=== PATIENT | female | born 2000 | race Caucasian/White ===

== ENCOUNTER 2022-09-27 23:36 | Inpatient (IN) | payer OTHER, SELFPAY ==
--- NOTE | ~2022-09-27 | FL_ITS ---
EXAMINATION: XR FLUOROSCOPY WITH IMAGES CLINICAL INFORMATION: Cholangiogram. COMPARISON: None available. TECHNIQUE: Fluoroscopy Supervised By: Dr. Aj Luis. Fluoroscopy Time: 33.9 seconds. Cumulative Dose: 7.23 mGy-cm DAP: None. Images: 2. FINDINGS: There are 2 digital images obtained following cholecystectomy with catheter positioned within the cystic duct. There is good opacification of spiral appearing cystic duct, common hepatic duct, intrahepatic ducts and common bile duct with no intraluminal filling defect. There is irregularity seen involving the distal CBD/ostium. FL/FL guidance in OR IMPRESSION: 1. Irregularity involving the distal CBD/junction. 2. No intraluminal filling defect seen in the common bile, cystic or common hepatic ducts.
--- NOTE | ~2022-09-27 | FL_ITS ---
EXAMINATION: XR FLUOROSCOPY WITH IMAGES CLINICAL INFORMATION: ERCP COMPARISON: Previous abdominal ultrasound and T-tube cholangiogram from yesterday TECHNIQUE: Fluoroscopy Supervised By: Dr. Diony Stern. Fluoroscopy Time: 216 seconds. Cumulative Dose: 63 mGy. DAP: Gycm2. Images: 4. FINDINGS: Initial images demonstrate a wire in the extrahepatic bile ducts and mild intra and extrahepatic biliary duct dilatation. Second and third image demonstrates a balloon in the distal common bile duct. Final image demonstrates decompression of the biliary system with decreased dilatation and contrast remaining in the intrahepatic bile ducts. FL/FL guidance in OR IMPRESSION: Fluoroscopy guidance for balloon dilatation of the common bile duct.
--- NOTE | ~2022-09-27 | US_ITS ---
EXAMINATION: US ABDOMEN LIMITED CLINICAL INFORMATION: Right upper quadrant pain, rule out acute cholecystitis. COMPARISON: None available. TECHNIQUE: Real-time imaging of the gallbladder and common bile duct. FINDINGS: The gallbladder is dilated measuring 13 cm in length. Gallstones are identified. Gallbladder wall thickness is within normal limits. Sonographic Whelan sign is reportedly negative. Common bile duct is dilated to 1.1 cm, and some intrahepatic biliary ductal dilatation is also noted. No discrete choledocholithiasis is seen. US/US abdomen limited IMPRESSION: 1. Cholelithiasis without additional findings of cholecystitis. 2. Dilated common bile duct measuring up to 1.1 cm, along with intrahepatic biliary ductal dilatation. Appearance is concerning for sequelae of choledocholithiasis, for which further evaluation with MRCP or ERCP is recommended.
[2022-09-27 23:38] VITALS: BP 124/68; PULSE 77; RESP 19; TEMP 36.4; O2SAT 97; BMI 29.3
[2022-09-27 23:57] LABS: MANUAL DIFF FLAG NO
[2022-09-27 23:58] LABS: Basophils Percent Auto 0.3 % (0-2); Eosinophils Percent Auto 0.1 % (0-4); Hematocrit 41.5 % (37.0-47.0); Hemoglobin 13.9 g/dl (12.0-16.0); Imm Gran Abs Auto 0.03 X10*3/uL (0.00-0.03); Imm Gran Pct Auto 0.3 % (0.0-0.4); Lymphocytes Absolute Auto 3.3 X10*3/uL (1.2-4.9); Lymphocytes Percent Auto 32.5 % (20-40); Mean Corpuscular HGB Conc 33.5 g/dl (31.0-35.0); Mean Corpuscular Hemoglobin 27.7 pg (27.0-33.0); Mean Corpuscular Volume 82.7 fL (80.0-98.0); Mean Platelet Volume 10.1 fL (9.4-12.3); Monocytes Absolute Auto 0.5 X10*3/uL (0.1-1.2); Neutrophils Absolute Auto 6.3 x10*3/uL (2.0-8.3); Neutrophils Percent Auto 61.8 % (45-73); Platelet Count 359 X10*3/uL (160-400); Red Blood Count 5.02 X10*6/uL (4.20-5.50); Red Cell Distribution Width 13.2 % (11.0-16.0); White Blood Count 10.2 X10*3/uL (4.8-10.8)
[2022-09-28] VITALS (16 sets, daily range): BP systolic 96–136; BP diastolic 50–84; PULSE 54–93; RESP 12–71; TEMP 36–36.8; O2SAT 95–100
[2022-09-28 00:32] LABS: Alanine Aminotransferase 56 U/L (0-31); Albumin Level 4.4 g/dL (3.5-5.0); Alkaline Phosphatase 146 U/L (39-117); Anion Gap 14 (12-20); Aspartate Amino Transferase 55 U/L (5-31); Bilirubin Total 1.7 mg/dL (0.0-1.0); Blood Urea Nitrogen 10 mg/dL (9-16); Calcium 9.9 mg/dL (8.4-10.2); Carbon Dioxide 24 mmol/L (22-29); Chloride 105 mmol/L (96-108); Creatinine Clr Calc Pharmacy 98.8; Estimated Glomerular Filt Rate > 60; Glucose Random 122 mg/dL (60-115); Lipase 36 U/L (8-78); Potassium 3.9 mmol/L (3.3-5.1); Sodium 139 mmol/L (135-145)
--- NOTE | 2022-09-28 00:42 | ED_ITS ---
HPI - Abdominal Pain General Chief Complaint: Abdominal Pain Stated Complaint: abd pain, bile in vomit Time Seen by Provider: 09/28/22 00:35 Source: patient Mode of arrival: ambulatory Limitations: no limitations History of Present Illness HPI narrative: Patient comes to the emergency room complaining of intermittent right upper quadrant pain. Patient states that she delivered a baby via in April of 2022. Since then, patient has been experiencing intermittent right upper quadrant pain. Patient states it is worse when she eats something spicy or greasy. However, over the last 48 hours, patient has had worsening pain and constant, now accompanied of nausea and vomiting, no fever chills, no diarrhea. Related Data Allergies Allergy/AdvReac Type Severity Reaction Status Date / Time No Known Allergies Allergy Unverified 11/27/19 16:53 Review of Systems Review of Systems Constitutional : No Weight loss, No Fever, No Chills, No Night Sweats, No Fatigue, No Malaise ENT/Mouth : No Hearing loss, No Ear Pain, No Nasal Congestion, No Sinus Pain, No Hoarseness, No sore throat, No Rhinorrhea, No Swallowing Difficulty Eyes: No Eye Pain, No Swelling, No Redness, No Foreign Body, No Discharge, No Vision Changes Cardiovascular : No Chest Pain, No SOB, No Dyspnea on Exertion, No Orthopnea, No Edema, No Palpitations Respiratory : No Cough, No Sputum, No Wheezing, No Smoke Exposure, No Dyspnea Gastrointestinal : Complaining of nausea and vomiting, No Diarrhea, No Constipation, complaining of intermittent right upper quadrant pain worsened by greasy foods, spicy foods or sometimes even water, No Hematochezia, No Melena Genitourinary : no irregular bleeding, No Dysuria, No Urinary Frequency, No Hematuria, No Urinary Incontinence, No Urgency, No Flank Pain, No Urinary Flow Changes, No Hesitancy Musculoskeletal : No joint pain, No Myalgias, No Joint Swelling Skin : No Skin Lesions, No rash Neuro : No Weakness, No Numbness, No Paresthesias, No Loss of Consciousness, No Dizziness, No Headache Psych : No Anxiety/Panic, No Depression, No SI/HI/AH/VH, No Social Issues, Heme/Lymph: No Bruising, No Bleeding,No Lymphadenopathy Endocrine : No Polyuria, No Polydipsia, No Temperature Intolerance PMFSH Past Medical History Surgical History (Updated 09/28/22 @ 00:45 by Anabel Solano MD) History of Social History Social History Advance Directives: No Advance Directives Information Provided: Yes Patient : No Physical Exam ED Vital Signs: Vital Signs - 24 hr 09/27/22 23:38 09/28/22 01:11 09/28/22 02:19 Temperature 97.6 F 97.9 F 98.0 F Pulse Rate 77 63 60 Respiratory Rate 19 18 18 Blood Pressure 124/68 115/66 104/59 L Pulse Oximetry 97 99 100 Oxygen Delivery Method Room Air Room Air BMI result Body Mass Index 29.3 Const Other: Appearance: Alert. Oriented X3. No acute distress. Eyes: Pupils equal, round and reactive to light. ENT: Pharynx normal. Neck: Normal inspection. Neck supple. No lymph nodes noted. No crepitus CVS: Normal heart rate and rhythm. Pulses normal. Normal S1 and S2 Respiratory: No respiratory distress. Breath sounds normal. No Wheezing. No rales Abdomen: Soft, tenderness to palpation in the right upper quadrant, positive Whelan sign Skin: Skin warm and dry. Normal skin color. Normal skin turgor. Extremities: No lower extremity edema. No Lacerations. No Rash Neuro: Oriented X 3. No motor deficit. No sensory deficit. Moving all extremities. No slurred speech. CN 2 through 12 grossly intact Psych: calm, cooperative, normal affect Medical Decision Making Medical Decision Making MDM Narrative: -white blood cell count is normal. However, patient does have elevated LFTs, T bilirubin 1.7, also mildly elevated AST and ALT, elevated alk-phos. Patient has positive Whelan sign -patient receiving IV fluids, Zofran, morphine -patient has had 2 doses of morphine. Initially she feels comfortable but once the medication starts wearing off, the patient returns, no vomiting after Zofran -identification of ultrasound: Gallstones are present, the wall does not seem to be significantly thickened -I discussed the patient , labs and the ultrasound findings with Dr. Wadsworth from surgery. It is possible that patient may have had a stone or is passing a stone. Patient will probably need an MRCP or ERCP in the morning. Patient will be admitted. -patient agreeable with plan. Differential Diagnosis Differential Diagnoses: The differential diagnosis associated with the presentation includes (Pancreatitis, cholecystitis, viral syndrome, choledocholithiasis) Admission/Observation Consideration of admission/observation: Escalation of care including admission/observation considered Consult Healthcare Provider Management of the patient was discussed with: Plating Tank Operator Apprentice Lab Data MDM Lab Attestation statement: I reviewed the patient's lab results. 09/27/22 23:54 09/27/22 23:54 Labs: Lab Results 09/27/22 09/27/22 09/28/22 Range/Units 23:54 23:54 00:55 WBC 10.2 (4.8-10.8) X10*3/uL RBC 5.02 (4.20-5.50) X10*6/uL Hgb 13.9 (12.0-16.0) g/dl Hct 41.5 (37.0-47.0) % MCV 82.7 (80.0-98.0) fL MCH 27.7 (27.0-33.0) pg MCHC 33.5 (31.0-35.0) g/dl RDW 13.2 (11.0-16.0) % Plt Count 359 (160-400) X10*3/uL MPV 10.1 (9.4-12.3) fL Immature Gran % (Auto) 0.3 (0.0-0.4) % Neut % (Auto) 61.8 (45-73) % Lymph % (Auto) 32.5 (20-40) % [place] % (Auto) 5.0 (2-11) % Eos % (Auto) 0.1 (0-4) % Baso % (Auto) 0.3 (0-2) % Lymph # (Auto) 3.3 (1.2-4.9) X10*3/uL [place] # (Auto) 0.5 (0.1-1.2) X10*3/uL Eos # (Auto) 0.0 (0.0-0.4) X10*3/uL Baso # (Auto) 0.0 (0.0-0.2) X10*3/uL Abs Immat Gran (auto) 0.03 (0.00-0.03) X10*3/uL Absolute Neuts (auto) 6.3 (2.0-8.3) x10*3/uL Absolute Nucleated RBC 0.000 (0.0-0.012) X10*3/uL Nucleated RBC % (auto) 0.0 (0.0-0.2) /100WBC Sodium 139 (135-145) mmol/L Potassium 3.9 (3.3-5.1) mmol/L Chloride 105 (96-108) mmol/L Carbon Dioxide 24 (22-29) mmol/L Anion Gap 14 (12-20) BUN 10 (9-16) mg/dL Creatinine 0.73 (0.5-1.4) mg/dL Estim Creat Clear Calc 98.8 Estimated GFR > 60 Random Glucose 122 H (60-115) mg/dL Calcium 9.9 (8.4-10.2) mg/dL Total Bilirubin 1.7 H (0.0-1.0) mg/dL AST 55 H (5-31) U/L ALT 56 H (0-31) U/L Alkaline Phosphatase 146 H (39-117) U/L Total Protein 8.0 (6.5-8.0) g/dL Albumin 4.4 (3.5-5.0) g/dL Lipase 36 (8-78) U/L Urine Color Yellow Urine Appearance Hazy Urine pH 6.0 (5.0-9.0) Ur Specific [place] >= 1.030 H (1.005-1.025) Urine Protein 30 (1+) H (Neg-Trace) mg/dL Urine Glucose (UA) Negative (Negative) mg/dL Urine Ketones 15 (Negative) mg/dL Urine Blood Trace (Negative) Urine Nitrite Negative (Negative) Ur Leukocyte Esterase Small (1+) H (Negative) Urine RBC 3-5 H (0-2) /HPF Urine WBC 0-5 (0-5) /HPF Ur Squamous Epith Cells 6-10 (0-2) /HPF Urine Bacteria 1+ (None Seen) Hyaline Casts 0-2 (0-2) /LPF Urine Test (NEGATIVE) 09/28/22 Range/Units 00:55 WBC (4.8-10.8) X10*3/uL RBC (4.20-5.50) X10*6/uL Hgb (12.0-16.0) g/dl Hct (37.0-47.0) % MCV (80.0-98.0) fL MCH (27.0-33.0) pg MCHC (31.0-35.0) g/dl RDW (11.0-16.0) % Plt Count (160-400) X10*3/uL MPV (9.4-12.3) fL Immature Gran % (Auto) (0.0-0.4) % Neut % (Auto) (45-73) % Lymph % (Auto) (20-40) % [place] % (Auto) (2-11) % Eos % (Auto) (0-4) % Baso % (Auto) (0-2) % Lymph # (Auto) (1.2-4.9) X10*3/uL [place] # (Auto) (0.1-1.2) X10*3/uL Eos # (Auto) (0.0-0.4) X10*3/uL Baso # (Auto) (0.0-0.2) X10*3/uL Abs Immat Gran (auto) (0.00-0.03) X10*3/uL Absolute Neuts (auto) (2.0-8.3) x10*3/uL Absolute Nucleated RBC (0.0-0.012) X10*3/uL Nucleated RBC % (auto) (0.0-0.2) /100WBC Sodium (135-145) mmol/L Potassium (3.3-5.1) mmol/L Chloride (96-108) mmol/L Carbon Dioxide (22-29) mmol/L Anion Gap (12-20) BUN (9-16) mg/dL Creatinine (0.5-1.4) mg/dL Estim Creat Clear Calc Estimated GFR Random Glucose (60-115) mg/dL Calcium (8.4-10.2) mg/dL Total Bilirubin (0.0-1.0) mg/dL AST (5-31) U/L ALT (0-31) U/L Alkaline Phosphatase (39-117) U/L Total Protein (6.5-8.0) g/dL Albumin (3.5-5.0) g/dL Lipase (8-78) U/L Urine Color Urine Appearance Urine pH (5.0-9.0) Ur Specific [place] (1.005-1.025) Urine Protein (Neg-Trace) mg/dL Urine Glucose (UA) (Negative) mg/dL Urine Ketones (Negative) mg/dL Urine Blood (Negative) Urine Nitrite (Negative) Ur Leukocyte Esterase (Negative) Urine RBC (0-2) /HPF Urine WBC (0-5) /HPF Ur Squamous Epith Cells (0-2) /HPF Urine Bacteria (None Seen) Hyaline Casts (0-2) /LPF Urine Test NEGATIVE (NEGATIVE) Independent Interpretation I performed an independent interpretation of an: Ultrasound Radiology Impression Discussion of test interpretation with radiology: I have reviewed the radiologist's reading. Radiologist Impression: US ABDOMEN LIMITED CLINICAL INFORMATION: Right upper quadrant pain, rule out acute cholecystitis. COMPARISON: None available. TECHNIQUE: Real-time imaging of the gallbladder and common bile duct. FINDINGS: The gallbladder is dilated measuring 13 cm in length. Gallstones are identified. Gallbladder wall thickness is within normal limits. Sonographic Whelan sign is reportedly negative. Common bile duct is dilated to 1.1 cm, and some intrahepatic biliary ductal dilatation is also noted. No discrete choledocholithiasis is seen. US/US abdomen limited IMPRESSION: 1.? Cholelithiasis without additional findings of cholecystitis. 2.? Dilated common bile duct measuring up to 1.1 cm, along with intrahepatic biliary ductal dilatation. Appearance is concerning for sequelae of choledocholithiasis, for which further evaluation with MRCP or ERCP is recommended. ? Medications Administered Discontinued Medications Generic Name Dose Route Start Last Admin Trade Name Freq PRN Reason Stop Dose Admin Sodium Chloride 1,000 mls @ 999 mls/hr 09/28/22 00:36 09/28/22 02:04 Ns IVCONT 09/28/22 01:36 Infused .Q1H1M ONE Infusion Ketorolac Tromethamine 30 mg 09/28/22 00:41 09/28/22 00:52 Ketorolac Tromethamine 30 Mg/Ml Vial IVPUSH 09/28/22 00:42 30 mg ONCE ONE Administration Morphine Sulfate 4 mg 09/28/22 02:36 09/28/22 02:48 Morphine Sulfate 4 Mg/Ml Cartridge IVPUSH 09/28/22 02:37 4 mg ONCE ONE Administration Protocol Ondansetron HCl 4 mg 09/28/22 00:36 09/28/22 00:51 Ondansetron Hcl 4 Mg/2 Ml Vial IVPUSH 09/28/22 00:37 4 mg ONCE ONE Administration Critical Care Time Critical Care Time Critical Care Time: Yes Total Critical Care Time: 60 Attestation: I have personally provided critical care time. Time includes review of lab data, radiology results, discussion with consultants, and monitoring for potential decompensation. Intervention performed as documented. Discharge Plan Discharge Clinical Impression: Choledocholithiasis Patient Disposition: Admitted As Inpatient
--- NOTE | 2022-09-28 00:48 | MHC.EDTECH ---
Patient was brought in from triage,patient changed into hospital attire, vitals updated, Patient in bathroom giving a urine sample at this time.
[2022-09-28] MEDS: 0.9 % Sodium Chloride 1,000 ML 999 ML IVCONT (00:51)
[2022-09-28] MEDS: ondansetron HCL 4 MG/2 ML VIAL IVPUSH ×2 (00:51→17:32)
[2022-09-28] MEDS: Ketorolac Tromethamine 30 MG/ML VIAL IVPUSH (00:52)
[2022-09-28 01:07] LABS: Appearance Urine Hazy; Color Urine Yellow; Glucose Urine UA Negative (Negative); Leukocyte Esterase Urine Small (1+) (Negative); Nitrite Urine Negative (Negative); Specific Gravity - Urine >= 1.030 (1.005-1.025); UMIC TRIGGER UACC YES; Urine Blood Trace (Negative); Urine Ketones 15 mg/dL (Negative); Urine Protein 30 (1+) mg/dL (Neg-Trace)
[2022-09-28 01:10] LABS: UPreg QC Valid YES; Urine Pregnancy NEGATIVE (NEGATIVE)
[2022-09-28 01:21] LABS: Bacteria Urine 1+ (None Seen); Hyaline Casts Urine 0-2 /LPF (0-2); UACC Culture Trigger YES; WBC Urine 0-5 /HPF (0-5)
--- NOTE | 2022-09-28 02:28 | MHC.EDTECH ---
Hourly rounds completed,vitals taken and patient is in pain, RN Dania was made aware. Call lopez within reach
[2022-09-28] MEDS: Morphine Sulfate 4 MG/ML CARTRIDGE IVPUSH ×3 (02:48→22:21)
[2022-09-28 03:18] LABS: Bilirubin Direct 0.9 mg/dL (0.0-0.5)
--- NOTE | 2022-09-28 03:36 | MHC.EDTECH ---
Hourly rounds completed, vitals taken and belongings list completed. Call lopez within reach
--- OUTSIDE RECORDS SUMMARY | 2022-09-28 03:52 | XMS_ITS | Continuity of Care Document ---
Author Name Unknown Organization [facility] Address [address] [address]- Care Team Providers Care Hand Finisher Name Role Phone Henri HENDRICKSON, Choco Jones Primary Care Physician [phone] Encounter [facility] Date(s): 01/06/22 - 02/05/[address] [facility] [address] [address]- Allergies, Adverse Reactions, Alerts No Known Allergies Immunizations Given and Recorded Vaccine Date Status Refusal Reason tetanus/diphtheria/pertussis, acel(Tdap) 01/18/22 Given influenza virus vaccine, inactivated 01/18/22 Give n Medications Aspirin Low Dose 81 mg oral delayed release tablet 2 tablet, By Mouth, Daily, # 60 tablet, 1 Refills, Maintenance, 01/18/22 9:28:00 EST, [id number], 150, cm, 12/29/21 8:57:00 EDT, Height, 72.1, kg, 12/08/21 8:37:00 EDT, Dry Weight Start Date: 01/18/22 Status: Ordered Multivitamins with Vitamin B Complex, Vitamin C, Minerals and L- Methylfolate oral capsule 1 capsule, By Mouth, Daily, # 30 capsule, 5 Refills, Maintenance, 11/17/21 15:08:00 EDT, Capsule, [id number], Partial fill upon patient request if the prescription is for a schedule II opioiddrug., 1 capsule By Mouth Daily,x30 days, 150, cm,... Start Date: 11/17/21 Stop Date: 05/16/22 Status: Ordered pyridoxine 25 mg oral tablet 1 tablet = 25 mg, By Mouth, Every 6 hours, PRN Nausea & Vomiting, take as needed, # 50 tablet, 2 Refills, Maintenance, 11/17/21 15:08:00 EDT, Tablet, [id number], Partial fill upon patientrequest if the prescription is for a schedule II opioid... Start Date: 11/17/21 Status: Ordered Unisom 25 mg oral tablet 1/2 tablet, By Mouth, 3 times a day, PRN Nausea & Vomiting, for 30 days, Take 1/2 a tab three times a day with one tab of pyridoxine for pevention of N/V in , # 45 tablet, 1 Refills, Acute 02/06/22 8:34:00 EST, 12/08/21 8:34:00 EDT, [facility] Start Date: 12/08/21 Stop Date: 02/06/22 Status: Ordered Problem List Condition Confirmation Course Effective Dates Status Health St at[facility] Informant Obese class I Confirmed Active Rh negative Confirmed Active Social History Social History Type Response Smoking Status Never (less than 100 in lifetime) entered on: 11/17/21 Sex Patient Care team information Care Team Personnel Name: Henri HENDRICKSON, Choco Jones Position: [facility] Primary Care Physician Member Role: PCP Address: Address: [address] [place] [address] [place] [address]- Care Team Related Persons Name: NELL ZABALA
--- OUTSIDE RECORDS SUMMARY | 2022-09-28 03:52 | XMS_ITS | Continuity of Care Document ---
Author Name Unknown Organization [facility] Address [address] [place] [address]- Care Team Providers Care Television Maintenance Worker Name Role Phone Choco Álvarez MD Primary Care Physician [phone] [place] [facility] [place] 09/23/22 [facility] [address] [place] [id number]- Attending Physician: AdmJorge balderas Admitting Physician: AdmtrJorge Referring Physician: Admtr, [id number] Allergies, Adverse Reactions, Alerts No Known Allergies Immunizations Given and Recorded Vaccine Date Status Refusal Reason tetanus/diphtheria/pertussis, acel(Tdap) 01/18/22 Given influenza virus vaccine, inactivated 01/18/22 Give n Medications acetaminophen 325 mg oral tablet 975 mg, 3, tablet, By Mouth, Every 6 hours, PRN, greater than 100.4 F (38 degree C), # 60 tablet, Refills 0, Tot. Refills 0, Maintenance, Temperature, 04/20/22 6:57:00 EST, Route to Pharmacy Electronically, [facility] #[id number], Partial fill upon patien... Start Date: 04/20/22 Status: Ordered docusate sodium 100 mg oral tablet = 100 mg, By Mouth, 2 times a day, # 30 tablet, 0 Refills, Maintenance, 04/20/22 6:57:00 EST, Tablet, [facility] #[id number], Partial fill upon patient request if the prescription is for a schedule II opioid drug., 150, cm, 04/20/22 0:53:00 EST, Height, 7... Start Date: 04/20/22 Status: Ordered ibuprofen 600 mg oral tablet See Instructions, 1 tablet By Mouth 3 times a day as needed for pain, # 90 tablet, Refills 0, Tot. Refills 0, Maintenance, 05/30/22 10:00:00 EDT, Instructions Replace Required Details, Route to Pharmacy Electronically, [facility]/pharmacy #[id number], Partial fill... Start Date: 05/30/22 Status: Ordered ibuprofen 800 mg oral tablet 800 mg, 1, tablet, By Mouth, Every 8 hours, (4-6), may give 400mg per patient preference and re-dose with 400mg within 8 hours, if needed. Patient should only receive a total of 800mg of Ibuprofen every 8 hours., # 30 tablet, Refills 0, Tot. Refills... Start Date: 04/20/22 Status: Ordered Lutera 100 mcg-20 mcg oral tablet 1 tablet, By Mouth, Daily, # 28 tablet, 12 Refills, Maintenance, 05/30/22 10:00:00 EDT, Tablet, [facility]/pharmacy #[id number], Partial fill upon patient request if the prescription is for a schedule II opioid drug., 1 tablet By Mouth Daily, 150, cm, 05/30/22 9:4... Start Date: 05/30/22 Status: Ordered Multivitamins with Vitamin B Complex, Vitamin C, Minerals and L- Methylfolate oral capsule 1 capsule, By Mouth, Daily, # 30 capsule, 5 Refills, Maintenance, 11/17/21 15:08:00 EDT, Capsule, [facility]/pharmacy #[id number], Partial fill upon patient request if the prescription is for a schedule II opioiddrug., 1 capsule By Mouth Daily,x30 days, 150, cm,... Start Date: 11/17/21 Stop Date: 05/16/22 Status: Ordered Problem List Condition Confirmation Course Effective Dates Status Health St at[facility] Informant Rh negative Confirmed Active Social History Social History Type Response Smoking Status Never (less than 100 in lifetime) entered on: 11/17/21 Sex Patient Care team information Care Team Personnel Name: Choco Álvarez MD Position: S Physician - Primary Care Member Role: PCP Address: Address: [address] [place] [address]- Care Team Related Persons Name: MARCIA HASSAN Address: [employer] Address: [address] [place] [address] [place] Name: NELL ZABALA Address: home [address] [place] [address]
--- OUTSIDE RECORDS SUMMARY | 2022-09-28 03:52 | XMS_ITS | Continuity of Care Document ---
Author Name Unknown Organization [facility] ter Address [address] [place] [id number]- Care Team Providers Care Purler Name Role Phone Henri HENDRICKSON, Choco Jones Primary Care Physician Encounter [facility] Date(s): 04/06/22 - 05/17/[address] [address] Attending Physician: Gavin Gu MD Referring Physician: Deepthi Floyd CNM Allergies, Adverse Reactions, Alerts No Known Allergies [...] 04/20/22 6:57:00 EST, Route to Pharmacy Electronically, [facility]/pharmacy #[id number], Partial fill upon patien... Start Date: 04/20/22 Status: Ordered docusate sodium 100 mg oral tablet = 100 mg, By Mouth, 2 times a day, # 30 tablet, 0 Refills, Maintenance, 04/20/22 6:57:00 EST, Tablet, [facility]/pharmacy #[id number], Partial fill upon patient request if the prescription is for a schedule II opioid drug., 150, cm, 04/20/22 0:53:00 EST, Height, 7... Start Date: 04/20/22 Status: Ordered famotidine 10 mg oral tablet 1 tablet = 10 mg, By Mouth, 2 times a day, # 60 tablet, 1 Refills, Maintenance, 03/15/22 19:03:00 EST, Tablet, [facility]/pharmacy #[id number], Partial fill upon patient request if the prescription is for a schedule II opioid drug., 150, cm, 03/15/22 18:54:00 EST,... Start Date: 03/15/22 Status: Ordered ferrous gluconate 324 mg oral tablet 1 tablet = 324 mg, By Mouth, 3 times a day, # 100 tablet, 1 Refills, Maintenance, 02/16/22 4:14:00 EST, Tablet, [facility]/pharmacy #[id number], Partial fill upon patient request if the prescription is for a schedule II opioid drug., 150, cm, 01/18/22 14:39:00 EST... Start Date: 02/16/22 Status: Ordered ibuprofen 800 mg oral tablet 800 mg, 1, tablet, By Mouth, Every 8 hours, (4-6), may give 400mg per patient preference and re-dose with 400mg within 8 hours, if needed. Patient should only receive a total of 800mg of Ibuprofen every 8 hours., # 30 tablet, Refills 0, Tot. Refills... Start Date: 04/20/22 Status: Ordered oxyCODONE 5 mg oral tablet 5 mg, 1, tablet, By Mouth, Every 3 hours, PRN, (7-10), # 10 tablet, Refills 0, Tot. Refills 0, Maintenance, Pain , Severe, 04/20/22 6:57:00 EST, Route to Pharmacy Electronically, [facility]/pharmacy #[id number], Partial fill upon patient request if the prescriptio... Start Date: 04/20/22 Status: Ordered Multivitamins with Vitamin B Complex, Vitamin C, Minerals and L- Methylfolate oral capsule 1 capsule, By Mouth, Daily, # 30 capsule, 5 Refills, Maintenance, 11/17/21 15:08:00 EDT, Capsule, [facility]/pharmacy #[id number], Partial fill upon patient request if the prescription is for a schedule II opioiddrug., 1 capsule By Mouth Daily,x30 days, 150, cm,... Start Date: 11/17/21 Stop Date: 05/16/22 Status: Ordered pyridoxine 25 mg oral tablet 1 tablet, By Mouth, Every 6 hours, PRN NEEDED FOR NAUSEA AND VOMITING, # 50 tablet, 3 Refills, Maintenance, 04/25/22 8:30:00 EST, [id number], 150, cm, 04/20/22 9:49:00 EST, Height, 73.3, kg, 04/15/22 12:06:00 EST, Dry Weight Start Date: 04/25/22 Status: Ordered simethicone 80 mg oral tablet, chewable 80 mg, Chew, 3 times a day, PRN, # 20 tablet, Refills 0, Tot. Refills 0, Maintenance, Gas, 236:57:00 EST, Route to Pharmacy Electronically, [facility]/pharmacy #[id number], Partial fill upon patient request if the prescription is for a schedule II opioid . Start Date: 04/20/22 Status: Ordered Problem List Condition Confirmation Course Effective Dates Status Health St atus Informant Obese class I Confirmed Active Rh negative Confirmed Active Social History Social History Type Response Smoking Status Never (less than 100 in lifetime) entered on: 11/17/21 Sex Patient Care team information Care Team Personnel Name: Choco Álvarez MD Position: S Primary Care Physician Member Role: PCP Address: Address: [address] [place] [address] [place] [address]- Care Team Related Persons Name: MARCIA HASSAN Address: [employer] Address: home [address] [place] [address] [place] Name: NELL ZABALA Address: home [address] [place] [address]
--- OUTSIDE RECORDS SUMMARY | 2022-09-28 03:52 | XMS_ITS | Continuity of Care Document ---
Author Name Unknown Organization [facility] ter Address [address] [place] [id number] Care Team Providers Care Certified Medical Coder Name Role Phone Henri HENDRICKSON, Choco Jones Primary Care Physician [phone] Encounter [facility] Date(s): 04/15/22 - 04/20/[address] [id number] Discharge Disposition: A-D/C Home Attending Physician: Rene HENDRICKSON [OB], Kim Cleary Admitting Physician: Rene HENDRICKSON [OB], Kim Cleary Referring Physician: Rene HENDRICKSON [OB], Kim Cleary Allergies, Adverse Reactions, Alerts No Known Allergies [...] 04/20/22 6:57:00 EST, Route to Pharmacy Electronically, [facility]/pharmacy #[id number], Partial fill upon patien... Start Date: 04/20/22 Status: Ordered docusate sodium 100 mg oral tablet = 100 mg, By Mouth, 2 times a day, # 30 tablet, 0 Refills, Maintenance, 04/20/22 6:57:00 EST, Tablet, [facility]/pharmacy #[id number], Partial fill upon patient request if the prescription is for a schedule II opioid drug., 150, cm, 04/20/22 0:53:00 EST, Height, 7... Start Date: 04/20/22 Status: Ordered famotidine 10 mg oral tablet 1 tablet = 10 mg, By Mouth, 2 times a day, # 60 tablet, 1 Refills, Maintenance, 03/15/22 19:03:00 EST, Tablet, [facility]/pharmacy #[id number], Partial fill upon patient request if the prescription is for a schedule II opioid drug., 150, cm, 03/15/22 18:54:00 EST,... Start Date: 03/15/22 Status: Ordered ferrous gluconate 324 mg oral tablet 1 tablet = 324 mg, By Mouth, 3 times a day, # 100 tablet, 1 Refills, Maintenance, 02/16/22 4:14:00 EST, Tablet, [facility]/pharmacy #[id number], Partial fill upon patient [...] 04/20/22 6:57:00 EST, Route to Pharmacy Electronically, [facility]/pharmacy #[id number], Partial fill upon patient request if the prescriptio... Start Date: 04/20/22 Status: Ordered OxyCODONE IR Tablet 5 mg, Tablet, By Mouth, Every 3 hours, PRN for Pain , Severe, (7-10), Routine, 04/17/22 12:12:00 EST Start Date: 04/17/22 Stop Date: 04/20/22 Status: Discontinued Multivitamins with Vitamin B Complex, Vitamin C, Minerals and L- Methylfolate oral capsule 1 capsule, By Mouth, Daily, # 30 capsule, 5 Refills, Maintenance, 11/17/21 15:08:00 EDT, Capsule, [facility]/pharmacy #[id number], Partial fill upon patient request if the prescription is for a schedule II opioiddrug., 1 capsule By Mouth Daily,x30 days, 150, cm,... Start Date: 11/17/21 Stop Date: 05/16/22 Status: Ordered simethicone 80 mg oral tablet, chewable 80 mg, Chew, 3 times a day, PRN, # 20 tablet, Refills 0, Tot. Refills 0, Maintenance, Gas, 236:57:00 EST, Route to Pharmacy Electronically, [facility]/pharmacy #[id number], Partial fill upon patient request if the prescription is for a schedule II opioid Start Date: 04/20/22 Status: Ordered Problem List Condition Confirmation Course Effective Dates Status Health St atus Informant Obese class I Confirmed Active Rh negative Confirmed Active Procedures Procedure Date Related Diagnosis Body Site Status delivery only; 04/16/22 C ompleted [place] tooth Completed Vital Signs Most recent to oldest [Reference Range]: 1 2 3 Height 150 cm (04/20/22 8:40 AM) 150 cm (04/20/22 12:53 AM) 150 cm (04/19/22 4:00 PM) Weight 73.3 kg (04/15/22 12:06 PM) 73.3 kg (04/15/22 11:18 AM) Oxygen Saturation [94-100 %] 97 % (04/20/22 8:40 AM) 100 % (04/20/22 12:53 AM) 99 % (04/19/22 4:00 PM) Pulse Rate [55-90 bpm] 69 bpm (04/20/22 8:40 AM) 109 bpm *H* (04/20/22 12:53 AM) 78 bpm (04/19/22 4:00 PM) Body Mass Index [18.5-24.99 kg/m2] 32.58 kg/m2 *>HHI* (04/15/22 12:06 PM) Blood Pressure [90-138/55-84 mm Hg] 111/64mm Hg (04/20/22 8:40 AM) 117/77mm Hg (04/20/22 12:53 AM) 112/70mm Hg (04/19/22 4:00 PM) Respiratory Rate [16-30 br/min] 18 br/min (04/20/22 9:18 AM) 17 br/min (04/20/22 8:40 AM) 20 br/min (04/20/22 4:55 AM) Temperature [96.8-100.4 DegF] 98.0 DegF (04/20/22 8:40 AM) 98.3 DegF (04/20/22 12:53 AM) 98.6 DegF (04/19/22 4:00 PM) Liters per Minute 1 L/min (04/16/22 5:02 PM) 2 L/min (04/16/22 2:51 PM) 2 L/min (04/16/22 2:01 PM) Mode of Delivery (Oxygen) Room air (04/20/22 12:53 AM) Room air (04/19/22 4:00 PM) Room air (04/19/22 8:00 AM) Blood pressure sites Arm, left (04/20/22 8:40 AM) Arm, right (04/20/22 12:53 AM) Arm, right (04/19/22 4:00 PM) Temperature Route Oral (04/20/22 8:40 AM) Oral (04/20/22 12:53 AM) Oral (04/19/22 4:00 PM) Dry Weight 73.3 kg (04/15/22 12:06 PM) 73.3 kg (04/15/22 11:18 AM) Social History Social History Type Response Smoking Status Never (less than 100 in lifetime) entered on: 11/17/21 Sex History and physical note * Jillian Forrester MD: PERFORM Event Display: History and Physical Hospital Authored Date: Patient: ??SAGRARIO, STEPHANIE ? Age:??21 Years?Sex:??Female?:??2000?? OB Reason for Admission OB Reason for Admission Reason for admission: Labor LMP/EGA/MARY JO Gestational Age (EGA) and MARY JO? * Note: EGA calculated as of 04/15/2022 ?? MARY JO:??04/10/2022?EGA*:??40 weeks 5 days ? History?(0,0,0,0)?Method:??Ultrasound??(12/12/2021) History of Present Illness Patient is a??21 year old @??40w5d gestation??presenting for early labor with SROM. She has been endorsing regular contractions since 04:00am. She also reports a gush of clear fluid at 09:45am. She has experienced vaginal spotting since her membrane sweep on Sunday, but denies any heavy bleeding.?? Endorses good movement. Denies fever/chills, ELENA, dizziness, changes in vision, CP, SOB, RUQ pain, UE/LE swelling. Overall, doing well with no complaints. Review of Systems Constitutional:??No fever, chills, or fatigue. HEENT:??No changes in vision, sneezing, congestion, runny nose or sore throat. Skin:??No rash or itching. Cardiovascular:??No chest pain. Respiratory:??No shortness of breath. Gastrointestinal:??No anorexia, nausea/vomiting, constipation/diarrhea. Genitourinary:??No burning micturition, urinary frequency or incontinence. Gynecologic: No heavy vaginal bleeding, vaginal discharge, or vaginal itching. Neurologic:??No headaches. Musculoskeletal:??No muscle pains. Psychiatric:??No depression or anxiety. Physical Exam Vitals & Measurements T:??98?F ?? OR:??93?? RR:??18?? BP:??99/68?? SpO2:??99%?? WT:??73.3??kg?? Constitutional:??Well-developed, no acute distress. Respiratory:??Equal chest rise bilaterally, no labored breathing.? Abdomen/GI:??Soft, non-tender, non-distended, no guarding or rebound tenderness.??Gravid. Gynecologic:?External Genitalia: normal exam, without lesions ??Vagina: no lesions, well-rugated ??Cervix: normal exam, no lesions Extremities:??Warm and well-perfused.?? Skin:??Normal for ethnicity. Neurological/Psychiatric:??Appearance appropriate, mood and affect stable. Presentation confirmed by:??vertex by sutures ?? Membrane Status (SSE): Ruptured Ferning:??Positive Nitrazine:??Positive Pooling:??Positive OB Assessment Baby A Baseline Description:Normal, 110-160 bpm Baseline Variability:Moderate variability Accelerations:Present 2 or more Deceleration:None Activity:Present Membranes ROM Date, Time:04/15/2022 09:45 EST Amniotic Fluid Color/Description:Blood tinged Cervical Estimated Weight:3500 gm Membrane Status:SROM Uterine Number of Contractions per 10 minutes3 Monitor Mode, UterinePalpation, External Cervical Cervical Dilatation4 cm Cervical [id number]% Station-2 Assessment/Plan Assessment:?? Patient is a 21 year old @ 40w5d gestation admitted for early labor with SROM. GBS neg. SROM with clear fluid at 09:45am. Early labor. Plan for expectant management. Epidural ordered. Cat 1 tracing. ?? Anemia in (O99.019):? (x) CBC 02/22/22 - 10.9/33.3 04/15: compliant on iron TID (p) CBC on admission ?? Labor without complication (O80):? -Expectant management -Continuous monitoring -Low PPH risk -Pain control: awaiting epidural -Re-evaluation in 2 hrs or PRN ?? Rh negative (Z67.91):? (x) antibody screen 28wks 01/18 neg (x) rhogam 28wks and prn, pt to return to [facility] after lab ( ) rhogam PP if indicated ?? OB History History?(0,0,0,0)?No previous pregnancies history have been recorded Labs Labs Labs & Tests ABO: AB (12/20/21) Antibody Screen: Negative (01/18/22) Chlamydia Trachomatis Amplified Probe: NEGATIVE (12/20/21) Creatinine-Blood: 0.5 mg/dL (02/22/22) Glucose 50 Gm, +60 Minutes: 104 mg/dL (12/29/21) Hct:??33.3 %??Low (02/22/22) Hemoglobinopathy Interpretation: Normal hemoglobins, with anemia. (12/20/21) Hepatitis B Surface Antigen: NEGATIVE (12/20/21) Hepatitis C Ab: NEGATIVE (12/20/21) Hgb:??10.9 Gm/dL??Low (02/22/22) HIV 4th Generation Ab-Ag Result: NEGATIVE (12/20/21) RH Test Only: Negative (12/20/21) RPR Titer Result: NOT INDICATED (12/20/21) Rubella IgG Ab: POSITIVE (12/20/21) Syphilis Screen by [facility]: NEGATIVE (12/20/21) Uric Acid: 3.2 mg/dL (02/22/22) Urine Culture: Urine Culture (12/20/21) Varicella IgG Ab: POSITIVE (12/20/21) Problem List Active Active Problem List Obese class I: (Medical) : (Obstetric) (07/02/21) Rh negative: (Medical) Procedure/Surgical History [place] tooth Home Medications Aspirin: 2 tablet, By Mouth, Daily Famotidine: 10 mg = 1 tablet, By Mouth, 2 times a day Ferrous Gluconate: 324 mg = 1 tablet, By Mouth, 3 times a day Miscellaneous Rx ([facility] DOXYLAMINE 25 MG TAB): See Instructions, TAKE 1/2 A TAB 3 TIMES A DAY WITH ONE TAB OF PYRIDOXINE FOR PEVENTION OF N/V IN Multivitamin, : 1 capsule, By Mouth, Daily Pyridoxine: 1 tablet, By Mouth, Every 6 hours, PRN ( NEEDED FOR NAUSEA AND VOMITING) Allergies NKA Social History Alcohol Use: Past. Frequency: 1-2 times per year., 11/17/2021 Electronic Cigarette/Vaping Electronic Cigarette Use: Never., 11/17/2021 Employment/School Status: Employed. 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 Lives with: Mother. Feels unsafe at home: No., 12/07/2021 Nutrition/Health Diet: Regular., 11/17/2021 Sexual Sexually involved in last 6 months: Yes., 11/17/2021 Substance Abuse Use: Never., 11/17/2021 Tobacco Use: Never (less than 100 in lifetime)., 11/17/2021 Family History Mat. Grandmother: Cancer; Diabetes mellitus Plan OB Plan Infant Feeding Plan: Breast milk (04/15/22) Labor Coping Mechanisms: Epidural (04/15/22) * Sneha Mensah CNM: PERFORM Event Display: History and Physical Hospital Authored Date: Admit to L&D?? Standard admit labs-see orders?? Covid swab ordered?? EFM: intermittent ?? This note was completed with the aid of a PGY1 Salman??. I personally performed all components of the visit including the history of present illness, examination and medical decision making. The notehas been verified for accuracy and re-documented as needed.?? Hospital Progress note * Danna Rangel: PERFORM, SIGN, VERIFY Event Display: Progress Note Hospital Authored Date: Patient: STEPHANIE ZABALA Age: 21 years Sex: Female : 2000 Associated Diagnoses: None Author: Danna Rangel Discharge instructions reviewed with pt, all questions answered. Pt has 6wk pp visit scheduled. Bands verified and cut, pt left unit ambulatory with significant other and * Danna Rangel: PERFORM, SIGN, VERIFY Event Display: Progress Note Hospital Authored Date: Patient: STEPHANIE ZABALA Age: 21 years Sex: Female : 2000 Associated Diagnoses: None Author: Danna Rangel Pt A&O x 3, VSS rooming in with infant and bonding well. Assessment as documented. Pt reports voiding without difficulty and passing flatus, has not yet had bowel movement. Pt pumping and [id number] per session. Reviewed plan of care with pt, will continue to monitor Findings Problem Related to Alteration in Comfort : Alteration in Comfort/new 04/19/2022 23:00 EST Alteration in Comfort Related to Surgery, Other: c/s Goals & Outcomes: Comfort Pt will report acceptable level of comfort & pain control, Pt will state importance of adhering to pain strategy regime, Pt will demonstrate necessary skills to manage pain, Non-verbal indicators will indicate comfort/pain control Interventions Implemented: Comfort Assess pain using appropriate pain scale/tools, Assess aggravating factors & prevent them accordingly, Assess alleviating factors & promote them accordingly Goals/Interventions, Comfort Yes Comfort, Problem Start 04/16/2022 21:37 Reviewed plan with, Comfort Patient Patient Progression, Comfort Pt progressing according to plan Comfort, Problem Ongoing Yes . * Kellee Dutton RN: PERFORM, SIGN, VERIFY Event Display: Progress Note Hospital Authored Date: [id number] Patient: STEPHANIE ZABALA Age: 21 years Sex: Female : 2000 Associated Diagnoses: None Author: Kellee Dutton RN Findings pt ob stable, abd soft, abd incision with steri strips clean and dry, fundus firm and -1, mild vag bleeding noted. pt reports +voiding without difficulty. pt reports adequate pain relief taking tylenol, ibuprofen, and oxycodone. will cont to assess Problem Related to Alteration in Comfort : Alteration in Comfort/new 04/19/2022 23:00 EST Alteration in Comfort Related to Surgery, Other: c/s Goals & Outcomes: Comfort Pt will report acceptable level of comfort & pain control, Pt will state importance of adhering to pain strategy regime, Pt will demonstrate necessary skills to manage pain, Non-verbal indicators will indicate comfort/pain control Interventions Implemented: Comfort Assess pain using appropriate pain scale/tools, Assess aggravating factors & prevent them accordingly, Assess alleviating factors & promote them accordingly Goals/Interventions, Comfort Yes Comfort, Problem Start 04/16/2022 21:37 Reviewed plan with, Comfort Patient Patient Progression, Comfort Pt progressing according to plan Comfort, Problem Ongoing Yes . Note * Berna Manzo: PERFORM Event Display: Care Team Progress Note Authored Date: Patient: ??STEPHANIE ZABALA ? Age:??21 Years?Sex:??Female?:??2000?? Subjective Day of discharge; pumped once last night 20ml, mostly formula. Assessment/Plan Discuss safe sleep, feeding volume, signs of satiety,??encouraged paced bottle feeding to slow feeding??down,??and that babies fuss for a variety of reasons, not just hunger. Reviewed how the body makes milk, encouraged more frequent removal of milk to maintain production. Gave info for obtaining breast milk storage bags from medical supplier through insurance. OB Summary : 1 . Baby A - Weight: 3.298 kg Baby A - Date, Time of : 04/16/22 11:43:00 Baby A - Gender: Female Baby A - Complications: Meconium stained fluid EGA at Documented Date, Time: 40W 6D Weight at Delivery Baby A - Delivery Type: , low transverse Delivery Complications: Suspected Intraamniotic infection OB History History?(0,0,0,0)?No previous pregnancies history have been recorded Active Problem List Active Problem List Intra-amniotic infection of fetus: (Nursing) Problem added by Discern Expert (04/16/22) Obese class I: (Medical) : (Obstetric) (07/02/21) Rh negative: (Medical) Home Medications Acetaminophen: 975 mg = 3 tablet, By Mouth, Every 6 hours, PRN (Temperature), greater than 100.4 F (38 degree C) Docusate: 100 mg, By Mouth, 2 times a day Famotidine: 10 mg = 1 tablet, By Mouth, 2 times a day Ferrous Gluconate: 324 mg = 1 tablet, By Mouth, 3 times a day Ibuprofen: 800 mg = 1 tablet, By Mouth, Every 8 hours, (4-6), may give 400mg per patient preferenceand re-dose with 400mg within 8 hours, if needed. ?? Patient should only receive a total of 800mg of Ibuprofen every 8 hours. Multivitamin, : 1 capsule, By Mouth, Daily Oxycodone: 5 mg = 1 tablet, By Mouth, Every 3 hours, PRN (Pain , Severe), (7-10) Simethicone: 80 mg, Chew, 3 times a day, PRN (Gas) Medications Medications (19) Active SCHEDULED: (5) Acetaminophen 325 mg Tablet (Acetaminophen Tablet) ??650 mg, By Mouth, Every 4 hours Docusate Sodium 100 mg Capsule (Docusate Sodium Capsule) ??100 mg 1 capsule, By Mouth, 2 times a day Famotidine 20 mg Tablet (Famotidine Tablet) ??20 mg, By Mouth, 2 times a day Ibuprofen 800 mg Tablet (Ibuprofen Tablet) ??800 mg, By Mouth, Every 8 hours Multivitamin Tablet ??1 tablet, By Mouth, Daily CONTINUOUS: (1) Lactated Ringers (1000 mL) Cont IV 1,000 mL (Lactated Ringers 1,000 mL) ??1,000 mL, IV Infusion, 125 mL/hr PRN: (13) Acetaminophen 325 mg Tablet (acetaminophen 325 mg oral tablet) ??975 mg, By Mouth, Every 6 hours Acetaminophen 325 mg Tablet (Acetaminophen Tablet) ??650 mg, By Mouth, Once diphenhydrAMINE 25 mg Tablet (DiphenhydrAMINE Tablet) ??25 mg, By Mouth, Every 4 hours diphenhydrAMINE 50 mg/mL Inj (DiphenhydrAMINE Inj) ??25 mg 0.5 mL, IV Push, Once FENTanyl 50 mcg/mL Inj (2 mL) (FENTanyl Inj) ??25 mcg 0.5 mL, IV Push, Every 5 minutes Metoclopramide 5 mg/mL Inj (2 mL) (Metoclopramide Inj) ??10 mg, IV Push, Every 6 hours nalOXONE ??400mcg/mL Inj (nalOXONE Inj) ??0.1 mg 0.25 mL, IV Push Slowly, Every 15 minutes Ondansetron 2mg/mL Inj (2mL Vial) (Ondansetron Inj) ??4 mg, IV Push, Once Ondansetron 2mg/mL Inj (2mL Vial) (Ondansetron Inj) ??4 mg, IV Push Slowly, Once Ondansetron 4 mg ODT (Ondansetron Tablet) ??4 mg, By Mouth, Every 4 hours OxyCODONE 5 mg IR Tablet (OxyCODONE IR Tablet) ??5 mg, By Mouth, Every 3 hours PROCHLORperazine 5mg/ml Inj (PROCHLORperazine Inj) ??5 mg 1 mL, IV Push, Every 6 hours Simethicone 80 mg Chewable Tablet (Simethicone Tablet) ??80 mg, Chew, 3 times a day * Danna Rangel: PERFORM Event Display: Discharge/Transfer Note Hospital Authored Date: [id number] Nursing Discharge Note Entered On: 04/20/2022 11:22 EST Performed On: 04/20/2022 11:18 EST by Danna Rangel Nursing Discharge Note 2 Discharge Level of Care at Discharge : Home/Fpc/Foster Care Patient Left Unit Via : Ambulatory Patient Accompanied Off Unit with : Significant other DC Instructions Provided & Signed by Pt : Yes Patient Understands D/C Instructions : Yes Patient Instructions Discharge Signed : Yes Did Pt have Specialty Bed or Wound Vac : No Danna Rangel - 04/20/2022 11:22 EST * Nigel HENDRICKSON, Jerri Coffman: PERFORM Event Display: Discharge/Transfer Note Hospital Authored Date: [id number] Patient: ??STEPHANIE ZABALA ? Age:??21 Years?Sex:??Female?:??2000?? Admit Date Admission Date: 04/15/2022 Discharge Date 04/20/2022 OB Reason for Admission OB Reason for Admission Reason for admission: Labor OBN Hospital Course 21 year old @??40w5d gestation??presenting for early labor with SROM. Her labor course was augmented with Pitocin. Her intrapartum course was complicated by IAI for which she received the appropriate antibiotics. After pushing??with contractions for >4 hours with little progress, she underwent a primary section. Her course was uncomplicated and she was discharged home on POD4 after meeting all milestones.? On day of discharge,??patient is feeling well and her??pain is controlled. Her lochia is light.??She is ambulating,??tolerating regular diet,??voiding spontaneously, and passing flatus.??Denies headache, visual changes, chest pain, shortness of breath, abdominal pain, leg swelling, nausea, or vomiting. Objective/Physical Exam on Day of Discharge Vitals & Measurements T:??98.3?F ?? HR:??78(Monitored)?? OR:??109?? RR:??20?? BP:??117/77?? SpO2:??100%?? HT:??150??cm?? WT:??3.298??kg?? BMI:??32.58?? General: Pleasant, alert, cooperative, in no acute distress. Pulmonary: Unlabored breathing. Abdomen: Soft, non-distended, non-tender to palpation.??Fundus firm and below umbilicus. Incision c/d/i with steris in place. Package Checker: Minimal spotting on peripad. Extremities: No lower extremity edema, no erythema/warmth/tenderness of calves bilaterally. Psychiatric: Mood and affect appropriate. Assessment/Plan/Discharge Diagnosis Assessment:??21 yo??G1 now P1 POD4 s/p PCS in the setting of failure to descend under general anesthesia due to inadequate pain control with her epidural. Intrapartum course was complicated by intraamniotic infection now s/p antibiotics. VS wnl and patient remains afebrile, hemodynamically stable. M eeting appropriate post-op milestones and appropriate for discharge. Patient educated on discharge precautions. Patient was counseled on warning signs for calling or returning to care including but not limited to signs of infection, increased bleeding, increased pain, and depression. ?? Discussed with the patient her pain med requirements for home. I encouraged her to continue Tylenoland ibuprofen scheduled and only take opiates for breakthrough pain. Explained that she may fill less than the prescribed amount, and she should store them in a safe location in a childproof prescription bottle. Any unused opiates should be returned to a prescription drop-box, such as the one at the [facility]. Discussed that no one other than the patient should take her opiates, and she should not use them for anything other than her postoperative pain. She should not drive while taking opiates. She was instructed to call the office with pain that is not controlled with this regimen. ?? care following delivery (Z39.2):? - Continue scheduled Tylenol and ibuprofen - Rx sent to patient pharmacy for pain medications - Continue bowel regimen - Rx sent to patient pharmacy for bowel regimen - PPBC: Declined. Discussed with patient that in the absence of the control and even with there is a risk of . Discussed that we ideally recommend at least 18-months between pregnancies. Discussed the different options including IUD, Nexplanon, Depo, POP. - Follow-up in 4-6 weeks for routine care ?? Endometritis (N71.9):? - s/p Amp, Gent, Clinda ?? Rh negative (Z67.91):? - Patient is not a candidate for rhogam ?? Future Appointments Sunday 9:40 AM EDT ?? With: Everett DOLAN, Deepthi Rios Where: [facility] [address] [place] [address]- Delivery Summary Delivery Summary Maternal Information ??Labor Information ?Labor Onset, Date/Time: ??04/15/22 14:28:00 ?Baby A ?Labor Onset Methods: ??Induced ??Delivery Information ?Gestational Age at Delivery: ??40W 6D ?Anesthesia OB: ??Epidural ??04/15/22 13:03:13 ?Delivery Complications: ??Suspected Intraamniotic infection ?Blood Loss - Quantitative: ??560 mL ? Baby A ??Delivery Information ?Delivery Type: ??, low transverse ? Priority: ??Non scheduled ?Date, Time of : ??04/16/22 11:43:00 ? Position: ??Supine ?Delayed Cord Clamping: ??No ?Reason for No Delayed Cord Clamping: ?? to warmer ?Placenta Delivery Date/Time: ??04/16/22 11:45:00 ?Placenta Delivery Method: ??Assisted ?Placenta Appearance: ??Normal ?Placenta to Pathology: ??Yes ??Care Team ?Time NICU Team Called: ??04/16/22 11:30:00 ??Labor Information ?ROM Date, Time: ??04/15/22 09:45:00 ?ROM to Delivery Total Time: ??1558 min ? monitoring: ??External monitor ?? Information ? Outcome: ??Live ? Weight: ??3.298 kg ? Score 1 minute: ??2 ? Score 5 minute: ??4 ? Score 10 minute: ??7 ?Transferred To: ?? Care area with Family ?Umbilical Cord Description: ??3 vessel cord ?Cord Blood pH drawn: ??Arterial, Venous ? Complications: ??None ?Gender: ??Female ? Procedures Performed Section Primary ? Discharge Medications ???Acetaminophen (acetaminophen 325 mg oral tablet)???Docusate (docusate sodium 100 mg oral tablet)???Famotidine (famotidine 10 mg oral tablet)???Ferrous Gluconate (ferrous gluconate 324 mg oral tablet)???Ibuprofen (ibuprofen 800 mg oral tablet)???Multivitamin, ( Multivitamins withVitamin B Complex, Vitamin C, Minerals and L-Methylfolate oral capsule)???Oxycodone (oxyCODONE 5 mgoral tablet)???Simethicone (simethicone 80 mg oral tablet, chewable) Stop taking these medications ???Aspirin (Aspirin Low Dose 81 mg oral delayed release tablet) Immunizations during Hospitalization Vaccine Date Statustetanus/diphtheria/pertussis, acel(Tdap) 01/18/2022 Given influenza virus vaccine, inactivated 01/18/2022 Given Contraception None ? Infant Feeding Method [place] Feeding Method: (04/16/22 15:00:00) Patient Instructions Call your doctor if: you note fever of 100.4 or greater, heavy vaginal bleeding, foul-smelling vaginal discharge, difficulty or burning with urination, nausea and vomiting with inability to tolerate food, pain not controlled by your prescribed medications, redness/swelling/drainage at incision, shortness of breath or chest pain. ??- Do not drive while taking narcotics. Do not drive until cleared by your doctor. ??- Avoid lifting anything 10bs or greater for 2 weeks/cleared by doctor. ??- Do not put anything in the vagina. No intercourse, tampons, or douching until cleared by doctor. ??- Stairs are OK but avoid multiple trips and go slowly. ??- Walk as often as you are able. ??- Continue your stool softeners (examples: colace/docusate, senna, miralax) until no longer taking narcotics and stools are regular. ??- Shower as usual after 24 hours. Remove Steri-Strips when they start to peel off, or after 5 days. Do not scrub the incision. Pat the skin dry. * Danna Rangel: PERFORM Event Display: Patient Education/Instruction Authored Date: [id number] Inpatient Adult Discharge Instructions [address] [address] Name: STEPHANIE ZABALA : 2000 Visit: 04/15/2022 11:55:00 Current Date: 04/20/2022 10:18 Account: [id number] Inpatient Adult Discharge Instructions We would like to thank you for allowing us to assist you with your healthcare needs. The following includes patient education materials and information regarding your injury/illness. Our entire staffstrives to provide an excellent experience for our patients and their families. PLEASE ENSURE YOU FOLLOW-UP PER THE INSTRUCTIONS BELOW! ?? YOUR OPINION IS IMPORTANT TO US! Please complete the survey you may receive by mail or email. Your feedback will be used to make improvements to the healthcare experiences of our patients and their families. Surveys are administered by [employer] ?? If further treatment with your primary care physician or another doctor is recommended, it is important for you to keep the appointment. Call your primary care physician or return to the Emergency Department immediately if your condition worsens, fails to improve, or new symptoms develop. If you need to find a doctor, you can call [facility] [employer] for a referral at [phone] or toll free at [phone] or log in to [email or web address].. ?? You can view and manage your care through the patient portal or by using a health care dewayne of your choosing. [employer] is a website that allows you to securely view your medical information including your hospital discharge summary, office visit summaries, medications and follow-up visits. You can also request appointments, renew medications, and request access to your medical information using a health care dewayne of your choosing, or just ask a question. You can enroll at [email or web address] or register during your next office visit. You have been discharged from [facility], Patient Care Unit: WIN2. If you have any questions regarding these instructions after you leave, please call us and we will be happy to assist you. [facility] Your Care Team Attending Physician Brittanie HENDRICKSON, Gavin; Rene HENDRICKSON [OB], Kim Cleary Consulting Providers Nigel HENDRICKSON, Jerri Coffman Discharging Providers Jerri Manning MD Reason for Admission Labor Your Diagnosis Labor without complication Anemia in Rh negative Endometritis care following delivery Obese class I Tests Performed Below is a partial list of the tests performed during your hospitalization. You may have had other tests and procedures not included in this list. Please discuss all test results with your provider. CBC Cord Blood Gas Type and Screen Primary Care Provider Choco Álvarez MD Advance Directive Health Care Proxy on File No Patient refuses to discuss Discharge Vitals Temperature: 98 DegF Height: 150 cm Pulse Rate: 69 bpm Weight: 73.3 kg Respiratory Rate: 18 br/min Body Mass Index:??32.58 kg/m2??Critical Systolic Blood Pressure: 111 mm Hg Body surface area: 1.75 Diastolic Blood Pressure: 64 mm Hg ?? Oxygen Saturation: 97 % ?? Studies Pending All tests and labs ordered during this hospital stay have been completed unless listed below. Please discuss all pending results with your provider listed above in these instructions. ?? COVID-19 (2019 Novel Coronavirus) PCR Hold Lavender Tube (BB) Pathology Tissue Request () Hold Lavender Tube (BB) (Hold Lavender Tube (BB), ) What to do next Instructions From Your Doctor Discharge Orders Scheduled Follow-Up Appointments Sunday 9:40 AM EDT ?? With: Deepthi Floyd CNM Where: [facility] [address] [place] [address]- You Need to Schedule the Following Appointments Follow Up with??Follow up in 4-6 weeks as scheduled When?? Discharge Medications STEPHANIE ZABALA :2000 Visit Date:04/15/2022 Medications: Please continue your medications until treatment is completed or stopped by your provider. Medications not listed below should be discontinued. Discuss any questions related to medications with your provider. What How Much When Why Instructions Next Dose New Acetaminophen (acetaminophen 325 mg oral tablet) 3 tab(s) Oral Every 6 hours as needed for Temperature greater than 100.4 F (38 degree C) ?? Pickup at [facility]/pharmacy #2070 1:!5pm New Docusate (docusate sodium 100 mg oral tablet) 100 Milligram Oral Twice a day Pickup at [facility]/pharmacy #2070 tomorrow New Ibuprofen (ibuprofen 800 mg oral tablet) 1 tab(s) Oral Every 8 hours (4-6), may give 400mg per patient preference and re-dose with 400mg within 8 hours, if needed. ?? Patient should only receive a total of 800mg of Ibuprofen every 8 hours. ?? Pickup at [facility]/pharmacy #2070 1:00pm New Oxycodone (oxyCODONE 5 mg oral tablet) 1 tab(s) Oral Every 3 hours as needed for Pain , Severe (7-10) ?? Pickup at [facility]/pharmacy #2070 1:15pm New Simethicone (simethicone 80 mg oral tablet, chewable) 80 Milligram Chew 3 times a day as needed for [facility] needed Unchanged Famotidine (famotidine 10 mg oral tablet) 1 tab(s) Oral Twice a day Abdominal pain Unchanged Ferrous Gluconate (ferrous gluconate 324 mg oral tablet) 1 tab(s) Oral 3 times a day Unchanged Multivitamin, ( Multivitamins with Vitamin B Complex, Vitamin C, Minerals and L-Methylfolate oral capsule) 1 capsule Oral Daily Duration: 30 Days tomorrow Pharmacy Information [facility]/pharmacy #[id number]: [address], [place] [id number] [phone] ?? What How Much When Comments Stop Taking Aspirin (Aspirin Low Dose 81 mg oral delayed release tablet) 2 tab(s) Oral Daily Test Results Below is a partial list of the most recent Laboratory test results done prior to this discharge. You may have had other tests and procedures not included in this list. Please discuss all test resultswith your provider. RHIG Candidacy Screen - Patient is not a candidate for RhIG (04/16/2022) CBC (04/15/2022) ???WBC - 14.9 k/mm3???RBC - 4.43 m/mm3???Hgb - 12.6 Gm/dL???Hct - 36.5 %???MCV - 82.4 femtoliters???MCH - 28.4 pg???MCHC - 34.5 g/dL???Platelet Count - 264 k/mm3???RDW-SD - 42.8 femtoliters???MPV - 10.5 femtoliters???Nucleated RBC (Automated) - 0.0 #/100 WBC'S???Abs. NRBC - 0.0 k/mm3 Cord Blood Gas (04/16/2022) ? ?pH - 7.27? ?pCO2 - 30 mm Hg? ?pO2 - <20 mm Hg? ?Bicarbonate, Estimated - 13 mmol/L? ?SpecimenType - Blood Gas - CORD BLOOD Type and Screen (04/15/2022) ???Blood Type - AB Negative???Antibody Screen - Negative Allergies (NKA means No Known Allergies) NKA Problems Active Problems??(4) Intra-amniotic infection of fetus?? Obese class I? Rh negative?? Education Materials Below is the list of Educational Leaflet Providered with your Discharge Instructions. OB PP [facility]- Discharge Instructions?? OB PP Warning Signs?? Valuables and Belongings I fully understand and agree that [facility] accepts no responsibility for all my personal property including clothing, toilet articles, radios, jewelry, dentures, hearing aids, rings, money, or any other property that is in my possession or is brought to me after admission. I understand certain valuables may be placed in a hospital safe for a short period of time. I understand that the hospital is not liable for loss or damage due to accident, fire, or other natural occurrence while said property is in the safe. I accept full responsibility for any personal property that I keep with me, and will not hold the hospital responsible in case of loss or disappearance. I acknowledge that i have been encouraged to send valuables and belongings home. ?? Review of Valuable and Belonging List: With patient Date for Pt to Sign Valuables/Belongings: 04/15/22 12:24:00 ?? Other Discharge Information ? Pulmonary Rehab Status?? Pulmonary Rehab Discharge Status?? Respiratory Rate: 18 br/min ? Common Emergency Awareness Tips IS IT A STROKE? Act FAST and Check for these signs: FACE Does the face look uneven? ARM Does one arm drift down? SPEECH Does their speech sound strange? TIME Call at any sign of stroke ?? Heart Attack Signs Chest discomfort: Most heart attacks involve discomfort in the center of the chest and lasts more than a few minutes, or goes away and comes back. It can feel like uncomfortable pressure, squeezing, fullness or pain. Discomfort in upper body: Symptoms can include pain or discomfort in one or both arms, back, neck, jaw or stomach. Shortness of breath: With or without discomfort. Other signs: Breaking out in a cold sweat, nausea, or lightheaded. Remember, MINUTES DO MATTER. If you experience any of these heart attack warning signs, call to get immediate medical attention! ?? Smoking can increase your chances of developing chronic health problems and can cause harmful effects to other family members in your house. If you smoke, you are strongly encouraged to quit. Please call [facility] [employer] at [phone] or [phone]) or log in to www.[email or web address] for referrals to smoking cessation programs. ?? The National Suicide Prevention Hotline is available 02/10 if you or someone you know needs to find a reason to keep living. By calling 6-130-484-Dragonfly List (1282) you'll be connected to a skilled, trained counselor at a crisis center in your area. INPATIENT DISCHARGE INSTRUCTIONS SIGNATURE PAGE STEPHANIE ZABALA Location:[facility] Registration Date and Time:04/15/2022 11:55 EST Primary Care Physician: Henri HENDRICKSON, Choco Jones, Keila STEPHANIE ZABALA, have received the above patient education materials/instructions and have verbalized understanding. If ambulance or transport services are being used I further acknowledge being given a choice of service. ?? If you need to contact me, please call me at this number: . Patient/Spindle Carver Name: Patient/Spindle Carver Signature: Relationship to Patient: Witness Name/Signature: Date: * Danna Rangel: PERFORM, SIGN, VERIFY Event Display: Patient Education Handout Authored Date: [id number] * Danna Rangel: PERFORM Event Display: Patient Education Leaflets Authored Date: [id number] OB PP [facility]- Discharge Instructions ?? 209 Discharge Care Instructions for the New Mom and Baby Please take a few moments to read through these helpful instructions before you leave the hospital.?? Your nurse will be glad to answer any questions you may have.?? You can also find this and more information throughout the purple Becoming a Family booklet, [facility]s New Beginnings Guide and the Consultation Services Guide given to you after the of your baby.?? You may also phone our nurses stations if you have further questions.?? [facility]:?? First Floor ([phone]), Second Floor ([phone]).?? Please call your provider if you have any questions or concerns?? before your next appointment. For ongoing support please ???Like?? us on our Facebook page ???[facility]???s New Beginnings?? andsign up for our email newsletter at [email or web address].?? News and information will besent to you until your baby???s third birthday. Instructions for the New Mother Activity: For the next 2 weeks at home ??? no heavy lifting, avoid unnecessary stair climbing, and no driving(especially if you are taking medicine that may make you sleepy or feel that you are sleep deprived).?? For the next 4-6 weeks - no tampons, no douches, no sexual intercourse. Use your sundar bottle to rinse your perineum until your vaginal flow stops.?? If you have stitches in your bottom, they generally dissolve within 7-10 days.?? Apply Tucks/witch linn pads until your soreness subsides.?? Use your bathroom at home every 3 to 4 hours, rinse, and change your pads. Warm showers feel great on achy muscles, sore backs and sore bottoms. Exercise: Walking is the best form of exercise.?? Wait until your follow up appointment with your provider in4-6 weeks before engaging in more strenuous activity. Diet: Drink plenty of fluids to avoid constipation and to help support your recovery. Eat plenty of iron rich foods such as red meat, iron fortified cereals like Total and Cream of Wheat, raisins, prunes, greens and spinach.?? These will help to build your blood count back up as all women lose some blood after delivery.?? Also add foods rich in Vitamin C such as strawberries, oranges, papayas, kale and lopez peppers. Continue to take your vitamins if you are .?? If you are not follow the instructions of your provider.?? If you were prescribed iron supplements such as ferrous sulfate, it is important to continue these until your doctor or printing services coordinator tells you to stop. Breast Care for Nursing Mothers: Wear a comfortable fitting, supportive nursing bra.?? An underwire bra is not recommended. Express drops of breast milk and rub over your nipples and areola (brown area) before and after each feeding to protect and heal sensitive skin and then air dry your nipples.?? If you are experiencing any soreness, you may purchase nipple cream such as TenderCare or Lansinoh.?? Use it in the following manner:?? finish your feeding or pumping session, self-express colostrum onto your nipple and air dry, apply the nipple cream to the nipple and areola.?? Use only small amounts for best results. If you are having difficulty getting the baby to latch onto the breast due to swelling of the areola, try applying pressure with your fingers for a couple of minutes above and below your nipple and walk your fingers outward softening the area and pushing the swelling away.?? This technique is knownas reverse pressure softening.?? For demonstrations of this and other techniques such as the [place] Hand Expression technique, please refer to the resources section of the Consultation Services Guide that you received from services. When your milk first comes in, usually within 3 to 5 days after delivery, you may experience engorgement.?? Your breasts may become swollen and very tender.?? Cold compresses work great to help with discomfort and reduce swelling. It will get better in a couple of days.?? Continue to nurse your baby frequently.?? Call [facility]???s Consultation Service at [phone], press 1 to schedule an outpatient appointment or press 3 and a splunk consultant will return your call that day or the next if you call after 3pm. Breast Care for Bottle Feeding Mothers: Engorgement may occur within the first week after delivery.?? Your breasts may become hard and verytender.?? A cool compress of cleaned raw green cabbage leaves applied to the breast and changed as leaves wilt has been proven helpful for many women.?? Ice packs or frozen bags of peas also work nicely to ease the discomfort.?? The soreness will only last a couple of days. Keep your back turned to the water while showering to decrease breast stimulation. Wear a snug fitting bra such as a sports bra. Incision Care Following Tubal or Section: You may shower as directed by your doctor or printing services coordinator.?? Pat your incision dry with a clean towel.??You will not need a bandage after the first day. Call your doctor or printing services coordinator with any signs of infection such as a hard, hot swollen tender incision, especially if the skin around the incision looks pink or red.?? Yellow drainage with an odor may also be a sign of infection to report. Call your doctor or printing services coordinator if the incision begins to separate. If you have steri-strips on the incision, they will likely fall off in the first week.?? If they have not fallen off by 10 days after delivery, you may remove them. Control: Your doctor or printing services coordinator will discuss control methods with you [facility] at your [facility].?? Be sure to let your provider know if you are . ?? Pain Management:?? Cramping after is common and increases in strength with each baby you have.?? If you experience painful cramps, and have no allergies to acetaminophen (Tylenol) or ibuprofen (Motrin), you may continue to take these medications as you did in the hospital.?? Ibuprofen is also helpful with back aches following epidurals, perineal pain following a vaginal delivery, and moderate incisional pain after a section or a tubal ligation.?? If you experience gas distention, especially after surgery, you may take an over the counter medication called simethicone.?? Take these chewable tablets 4 times a day as needed and directed on the package.?? Keep moving.?? Walking or rocking in a chair, will help to move the gas along.?? Manjula tea made with heated manjula navya (instead of water) and a tea bag, stirred to dissolve carbonation (bubbles) is a helpful drink to soothe a gassy stomach. Warning Signs of a Problem to Notify Your Doctor or Enrollment Nurse of: Heavy vaginal bleeding ??? which is soaking a pad every hour with bright red blood. Passing blood clots the size of an egg or larger. An incision that is not healing. A temperature greater than or equal to 100.4 especially if accompanied by any of the following symptoms ??? painful, frequent urination; extreme back or flank pain; lower belly pain with a foul smellto your vaginal flow; a red hard hot area on your breast.?? Severe headache that does not go away after taking acetaminophen or ibuprofen.?? A headache that changes your vision, including seeing spots or blurring. Right sided upper abdominal pain along the rib cage area. Pain in your legs that is warm and tender to the touch. depression signs may include ??? loss of interest in your baby, weepiness, difficulty focusing, weight loss with no appetite, exhaustion, feeling overwhelmed or anxious, feelings of despair, or thoughts of harming yourself or your baby.?? These symptoms are important and should be discussed with your doctor or printing services coordinator. depression may develop over a period of time and needs prompt medical attention.?? Do not suffer in silence.?? In both the Becoming a Family booklet and the[facility] Guide there is a screening tool used to identify women at risk, called the [place] Scale which you have taken in the office prior to delivery and again during your hospital s mali.?? Three to four weeks after your delivery, and before your check with your provider, take this test and share your results with your provider.?? Be sure to mention any score of 10 or more.?? Many women, and even some partners, may experience the ???baby blues?? .?? This is a state of feeling overwhelmed and weepy.?? Discomfort from childbirth, hormonal changes, exhaustion, changes to your body and lifestyle are a few of the things that contribute to the highs and lows new parents go through.?? Don???t be afraid to ask your partner or family and friends for some help at home so you can get some rest and a few minutes to yourself.?? The blues will quickly pass. Personal Safety: Every person has the right to feel safe at home and live free from physical or emotional harm.?? Ifyou have suffered mental or physical abuse at home, you are not alone.?? There is help.?? Please call [employer] or the [employer] Program at [phone]. CARE Bathing: Give your baby a sponge bath until the cord falls off in about 1-3 weeks.?? It is not necessary to bathe your baby every day, usually every few days is sufficient. ??Keep the cord area dry.?? Some baby girls will have a small bloody vaginal discharge. No need to worry as this is normal. It is not necessary to use lotions on the baby???s skin.?? Powders and oils are not recommended.?? Babies often get rash on their skin which comes and goes quickly and does not require any special care.?? Diaper rash can be treated with a zinc oxide preparation such as Desitin or Balmex diaper cream. ?? Diapers:? After the 1st??few days, the baby will start wetting more often.?? A breast fed baby will wet about6-8 times a day once mom???s milk comes in ??? usually day 4 or 5.?? This is a good sign that the baby is getting plenty to eat.?? You may notice an orangey-pink stain in the diaper which is normal for the first few days. The baby???s first bowel movements are sticky, black and tarry.?? As the baby starts to feed more often over the next couple of days, the stool will change to a seedy yellowish green color and eventually a loose mustard like stool for a breast fed baby and a more formed yellow stool for a bottle fed baby. your Baby: ??Congratulations on deciding to breastfeed your baby! You are providing your baby with the most nourishing food source on the planet, your breast milk.?? Cues such as rooting, suckling, licking and fussing may be telling you that your baby is ready to eat ??? and it is time to offer your breasts. The first weeks following the are a time for you and your baby to learn.?? The baby may be sleepy the first day after with 8 to 12 attempts ??? including 2 to 4 good feedings.?? Over the next couple of days the baby will become more wakeful, feed 8 to 12 times a day and have more wet and poopy diapers.?? Cluster feeding, especially during the evening/night time, is normal. ?? Listen for swallowing sounds and watch the baby as they become more relaxed at the breast ??? both good signs that the baby is getting a good amount of milk.?? Refrain from smoking or eating edible marijuana while you are . Even though marijuana is legal in the state of [place],??it is harmful for your baby.??It stays in breast milk for along period of time and THC can be found in the baby's urine for up to 3 weeks. Second hand smoke can also increase the risk??of Sudden Syndrome / SIDS. ?? Nursing is wonderful but many moms and babies have some degree of difficulty with at first. Don???t give up!?? There are many resources available to help you overcome these temporary problems. Your electrical control assembler wants to hear from you if you are having difficulties and can offermany helpful suggestions.?? Some offices have consultants on staff. [facility]???s Consultation Service is available 7 days a week, 8am to 3pm at [phone].?? Press 1 to schedule an outpatient appointment.?? Press 3 to leave a message for the reporting consultant, a splunk consultant will return your call that day or the next if you call after 3pm. Support Groups ??? [facility] offers free gatherings for moms and babies weekly.?? All groups meet at the [facility]???s 2nd??floor, typically in the [facility] Conference Room, Sunday???s 1 to 2 pm.?? Michelle Aguirre is a worldwide organization with local community support, mother to mother support.?? Information can be found at https://www.lllusa.org Formula Feeding your Baby: Formula fed babies should eat every 3 to 4 hours.?? Look for cues that your baby is ready ??? such as rooting and sucking, licking and fussing.?? At the baby???s stomach is small and may take 10-15ml of formula.?? Over the next few days the baby will become more wakeful and feed more frequently, gradually increasing the amounts of formula taken at a feeding.?? Your electrical control assembler will provideinstructions on how to increase the amount.?? Refer to packaging for formula preparation directions, depending on the type of formula you purchase ??? powder, concentrate or ready to feed. Safety: ALWAYS REMEMBER - BACK TO SLEEP! Babies sleep safest on their backs.?? Every sleep.?? Every time.?? Every nap. Babies need a firm sleep surface with a tight fitting bottom sheet.?? NO loose bedding.?? NO pillows.?? NO bumper pads or rolls.?? NO heavy or fluffy blankets. NO stuffed toys. It is not safe for your baby to sleep in your bed, in a chair, or on a sofa.?? Your baby should notsleep with you or anyone else. Car Seat: Always place your baby in a rear facing car seat in the backseat of the car. Car seat inserts that come with the car seat can be used as they are crash tested with the seat.?? You should not buy additional inserts.?? Dress the baby in a weather appropriate outfit.?? Avoid bulky clothing such as snowsuits or jackets as the baby may squirm in the seat, loosening the shoulder straps and come out of the top of the harness if you need to brake hard or are in an accident.?? Once the baby issecured in the seat you can cover your little one with a blanket if needed.?? If your baby was bornprematurely, follow the directions given to you.?? If you have not already done so, check to make sure your car seat is installed correctly. Check with your local Fire and Police Department to see if they offer car seat inspections at a location close to you. Babies Can Move: ?? Never leave your baby unattended on any surface, raised or flat, or while bathing.?? They can squirm, fall or hurt themselves.?? Always fasten the safety belt when using an infantseat or swing ??? as they may lean forward and fall. Good Handwashing is the number one way you can protect the baby from too?? many germs and prevent infection.?? When family and friends visit ask that they wash their hands before holding your baby.??Also avoid crowds the first month of your baby???s life to protect from colds and flus. Shaking a baby out of frustration can cause severe and lasting damage, even to a baby.?? If you feel you are becoming angry or overwhelmed, place the baby in a safe place and walk away.?? Call a friend or family member.?? If they are not able to offer immediate help call the Parental Stress Hotline at?? , an anonymous 02/10 source of help. Warning Signs to notify your electrical control assembler of: Most babies develop a small amount of jaundice (a yellowish skin color) in the face and upper chest, by about 3 days of age.?? If the yellow color extends below the baby???s belly or if the baby is very sleepy and not feeding well, call your electrical control assembler. A rectal temperature of 100.4F as it could be a sign of infection. Projectile vomiting that continues with each feeding could indicate reflux or a problem with the formula. Extreme sleepiness or very fussy. Cold symptoms with nasal stuffiness, especially if the baby is having difficulty feeding. Constipation with hard stools. Blue or dusky color, call 911. ? This information has been modified by your health care provider with permission from the publisher. ?? * Danna Rangel: PERFORM Event Display: Patient Education Leaflets Authored Date: [id number] OB PP Warning Signs ?? 222 Warning Signs Mom - Warning Signs of Problems to Notify Your Doctor or Enrollment Nurse of: ??? Heavy vaginal bleeding (soaking a pad every hour with bright red blood). ??? Large clots the size of an orange or so. ??? A temperature greater than or equal to 100.6F especially if accompanied by painful, frequent urination, lower abdominal pain with a foul smell to vaginal flow, a red hard hot area on breast that could indicate a breast infection. ??? Severe headaches, visual changes such as seeing spots or blurred vision. ??? Extreme back pain. ??? Pain in the back of your legs that is tender to the touch. ??? Breathing difficulties. ??? Signs of depression include: loss of interest in your baby, weepiness, weight loss, exhaustion, feeling of being overwhelmed or anxious. T his is a chemical imbalance that needs medical treatment. Many women do however experience baby blues which is a temporary feeling of weepiness or anxiety which goes away with some good old T.L.C and sleep. Having a baby is a wonderful experience but sleep deprivation, hormone changes and a life style change, can make the best of us have an off day. If these feelings last for a prolonged lengthof time, or begin to affect your appetite, or your ability to sleep, call your doctor or printing services coordinator. [place] - Warning Signs to notify your electrical control assembler of: ??? Most babies develop a small amount of jaundice (a yellowish skin color) in the face and upper chest, by about 3 days of age. If the yellow color extends below the baby's belly or if the baby is very sleepy and not feeding well, call your electrical control assembler. ??? A rectal temperature of 100.4F could be a sign of infection. ??? Projectile vomiting that continues with each feeding could indicate reflux or a problem with the formula. ??? Extreme sleepiness or very fussy. ??? Cold symptoms with nasal stuffiness, especially if the baby is having difficulty feeding. ??? Blue or dusky skin color. ??? Constipation with hard stools. ?? * Berna Manzo: PERFORM Event Display: Care Team Progress Note Authored Date: Patient: ??STEPHANIE ZABALA ? Age:??21 Years?Sex:??Female?:??2000?? Subjective day 3 parents feel frustrated with conflicting advice mostly bottle feeding formula, some attempts at breast, some pumping Assessment/Plan Reviewed stimulation for milk production again Parents are attentive to feeding cues of baby and signs of satiety. Output is adequate. Attempted at breast with nipple shield per request of electrical control assembler, baby latches better and stays on without nipple shield. It definitely takes work and several attempts, use of formula and hand expression to have fluid readily available, but when Anastasiya gets on she has a goo rhythmic nutritive suck. Again at this feeding session she did not stay on very long, she had also cluster fed pretty largeamounts of formula and EBM since 0900. Mom to get up and shower and pump, last pumping session was 0900. Encouraged to pump overnight, pump regularly every 3 hours. Parents questioned use sterile containers for pumping each session, not necessary with a full term healthy baby not in NICU. We discussed washing bottle and flanges with hot soapy water and at home sterilizing personal use pump equipment before use.??Parents open to education and asking appropriatequestions for baby care and feeding. OB Summary : 1 . Baby A - Weight: 3.298 kg Baby A - Date, Time of : 04/16/22 11:43:00 Baby A - Gender: Female Baby A - Complications: Meconium stained fluid EGA at Documented Date, Time: 40W 6D Weight at Delivery Baby A - Delivery Type: , low transverse Delivery Complications: Suspected Intraamniotic infection OB History History?(0,0,0,0)?No previous pregnancies history have been recorded Active Problem List Active Problem List Intra-amniotic infection of fetus: (Nursing) Problem added by Discern Expert (04/16/22) Obese class I: (Medical) : (Obstetric) (07/02/21) Rh negative: (Medical) Home Medications Aspirin: 2 tablet, By Mouth, Daily Famotidine: 10 mg = 1 tablet, By Mouth, 2 times a day Ferrous Gluconate: 324 mg = 1 tablet, By Mouth, 3 times a day Multivitamin, : 1 capsule, By Mouth, Daily Medications Medications (19) Active SCHEDULED: (5) Acetaminophen 325 mg Tablet (Acetaminophen Tablet) ??650 mg, By Mouth, Every 4 hours Docusate Sodium 100 mg Capsule (Docusate Sodium Capsule) ??100 mg 1 capsule, By Mouth, 2 times a day Famotidine 20 mg Tablet (Famotidine Tablet) ??20 mg, By Mouth, 2 times a day Ibuprofen 800 mg Tablet (Ibuprofen Tablet) ??800 mg, By Mouth, Every 8 hours Multivitamin Tablet ??1 tablet, By Mouth, Daily CONTINUOUS: (1) Lactated Ringers (1000 mL) Cont IV 1,000 mL (Lactated Ringers 1,000 mL) ??1,000 mL, IV Infusion, 125 mL/hr PRN: (13) Acetaminophen 325 mg Tablet (acetaminophen 325 mg oral tablet) ??975 mg, By Mouth, Every 6 hours Acetaminophen 325 mg Tablet (Acetaminophen Tablet) ??650 mg, By Mouth, Once diphenhydrAMINE 25 mg Tablet (DiphenhydrAMINE Tablet) ??25 mg, By Mouth, Every 4 hours diphenhydrAMINE 50 mg/mL Inj (DiphenhydrAMINE Inj) ??25 mg 0.5 mL, IV Push, Once FENTanyl 50 mcg/mL Inj (2 mL) (FENTanyl Inj) ??25 mcg 0.5 mL, IV Push, Every 5 minutes Metoclopramide 5 mg/mL Inj (2 mL) (Metoclopramide Inj) ??10 mg, IV Push, Every 6 hours nalOXONE ??400mcg/mL Inj (nalOXONE Inj) ??0.1 mg 0.25 mL, IV Push Slowly, Every 15 minutes Ondansetron 2mg/mL Inj (2mL Vial) (Ondansetron Inj) ??4 mg, IV Push, Once Ondansetron 2mg/mL Inj (2mL Vial) (Ondansetron Inj) ??4 mg, IV Push Slowly, Once Ondansetron 4 mg ODT (Ondansetron Tablet) ??4 mg, By Mouth, Every 4 hours OxyCODONE 5 mg IR Tablet (OxyCODONE IR Tablet) ??5 mg, By Mouth, Every 3 hours PROCHLORperazine 5mg/ml Inj (PROCHLORperazine Inj) ??5 mg 1 mL, IV Push, Every 6 hours Simethicone 80 mg Chewable Tablet (Simethicone Tablet) ??80 mg, Chew, 3 times a day * Berna Manzo: PERFORM Event Display: Care Team Progress Note Authored Date: [id number] Patient: ??STEPHANIE ZABALA ? Age:??21 Years?Sex:??Female?:??2000?? Subjective day two post mom states she was unable to breastfeed last night because she felt so tired. Dad bottle fed formula. Pump in room but did not use. Baby fed 34 ml 1030am, return for feed 1330 Assessment/Plan Return for feeding at 1315, baby had 15ml formula @1300. baby to breast left side about 5m with audible swallows. She is harder to settle but once she latches does well. Set up [employer]™ [employer] pump and pumped with mom, expressed 10ml which dad fed to baby with bottle. Mom easily hand expresses large drops of transitional looking milk Symphony pump use demonstrated to mother/partner.?Initiation/maintenance mode explained.?Educated on: Frequency and duration of pumping Hands on pumping Adding hand expression to increase milk yield Correct flange size Cleaning of pump parts Labeling of breast milk Milk storage Mother currently using 24mm flanges. ?? Plan: feed baby at breast as much as possible, if not feeding at breast and using a bottle mom is to pump. If baby only feeds 5 minutes at breast, that isn't enough stimulation and is to pump. OB Summary : 1 . Baby A - Weight: 3.298 kg Baby A - Date, Time of : 04/16/22 11:43:00 Baby A - Gender: Female Baby A - Complications: Meconium stained fluid EGA at Documented Date, Time: 40W 6D Weight at Delivery Baby A - Delivery Type: , low transverse Delivery Complications: Suspected Intraamniotic infection OB History History?(0,0,0,0)?No previous pregnancies history have been recorded Active Problem List Active Problem List Intra-amniotic infection of fetus: (Nursing) Problem added by Discern Expert (04/16/22) Obese class I: (Medical) : (Obstetric) (07/02/21) Rh negative: (Medical) Home Medications Aspirin: 2 tablet, By Mouth, Daily Famotidine: 10 mg = 1 tablet, By Mouth, 2 times a day Ferrous Gluconate: 324 mg = 1 tablet, By Mouth, 3 times a day Multivitamin, : 1 capsule, By Mouth, Daily Medications Medications (19) Active SCHEDULED: (5) Acetaminophen 325 mg Tablet (Acetaminophen Tablet) ??650 mg, By Mouth, Every 4 hours Docusate Sodium 100 mg Capsule (Docusate Sodium Capsule) ??100 mg 1 capsule, By Mouth, 2 times a day Famotidine 20 mg Tablet (Famotidine Tablet) ??20 mg, By Mouth, 2 times a day Ibuprofen 800 mg Tablet (Ibuprofen Tablet) ??800 mg, By Mouth, Every 8 hours Multivitamin Tablet ??1 tablet, By Mouth, Daily CONTINUOUS: (1) Lactated Ringers (1000 mL) Cont IV 1,000 mL (Lactated Ringers 1,000 mL) ??1,000 mL, IV Infusion, 125 mL/hr PRN: (13) Acetaminophen 325 mg Tablet (acetaminophen 325 mg oral tablet) ??975 mg, By Mouth, Every 6 hours Acetaminophen 325 mg Tablet (Acetaminophen Tablet) ??650 mg, By Mouth, Once diphenhydrAMINE 25 mg Tablet (DiphenhydrAMINE Tablet) ??25 mg, By Mouth, Every 4 hours diphenhydrAMINE 50 mg/mL Inj (DiphenhydrAMINE Inj) ??25 mg 0.5 mL, IV Push, Once FENTanyl 50 mcg/mL Inj (2 mL) (FENTanyl Inj) ??25 mcg 0.5 mL, IV Push, Every 5 minutes Metoclopramide 5 mg/mL Inj (2 mL) (Metoclopramide Inj) ??10 mg, IV Push, Every 6 hours nalOXONE ??400mcg/mL Inj (nalOXONE Inj) ??0.1 mg 0.25 mL, IV Push Slowly, Every 15 minutes Ondansetron 2mg/mL Inj (2mL Vial) (Ondansetron Inj) ??4 mg, IV Push, Once Ondansetron 2mg/mL Inj (2mL Vial) (Ondansetron Inj) ??4 mg, IV Push Slowly, Once Ondansetron 4 mg ODT (Ondansetron Tablet) ??4 mg, By Mouth, Every 4 hours OxyCODONE 5 mg IR Tablet (OxyCODONE IR Tablet) ??5 mg, By Mouth, Every 3 hours PROCHLORperazine 5mg/ml Inj (PROCHLORperazine Inj) ??5 mg 1 mL, IV Push, Every 6 hours Simethicone 80 mg Chewable Tablet (Simethicone Tablet) ??80 mg, Chew, 3 times a day Patient Care team information Care Team Personnel Name: Choco Álvarez MD Position: [facility] Primary Care Physician Member Role: PCP Address: Address: [address] [place] [address]- Name: Danna Rangel Position: [facility] OB RN Member Role: OB RN Name: Aditi Arroyo RN Position: [facility] OB RN Member Role: Chart Review Care Team Related Persons Name: HAILEEMEENANELL Address: home [address] [place] [address] Name: HAILEESTEPHANE ROBLEDOAE GIRL Address: AMER[place] Address: home [address] [place] [address] [place]
--- OUTSIDE RECORDS SUMMARY | 2022-09-28 03:52 | XMS_ITS | Continuity of Care Document ---
Author Name Unknown Organization [facility] Address [address] [place] [address]- Care Team Providers Care Paper Cup Handle Machine Operator Name Role Phone Henri HENDRICKSON, Choco Jones Primary Care Physician Encounter [facility] Date(s): 12/20/21 - 01/20/[address] [address]- Attending Physician: Saba HENDRICKSON, Lynda Rios Admitting Physician: Lynda Walter MD Referring Physician: Marian SCHMIDT, Kell Callaway Allergies, Adverse Reactions, Alerts No Known Allergies Immunizations Given and Recorded Vaccine Date Status Refusal Reason tetanus/diphtheria/pertussis, acel(Tdap) 01/18/22 Given influenza virus vaccine, inactivated 01/18/22 Give n Medications Aspirin Low Dose 81 mg oral delayed release tablet 2 tablet, By Mouth, Daily, # 60 tablet, 1 Refills, Maintenance, 01/18/22 9:28:00 EST, [id number], 150, cm, 12/29/21 8:57:00 EDT, Height, 72.1, kg, 12/08/21 8:37:00 EDT, Dry Weight Start Date: 01/18/22 Status: Ordered Multivitamins with Vitamin B Complex, Vitamin C, Minerals and L- Methylfolate oral capsule 1 capsule, By Mouth, Daily, # 30 capsule, 5 Refills, Maintenance, 11/17/21 15:08:00 EDT, Capsule, [id number], Partial fill upon patient request if [...] Refills, Maintenance, 11/17/21 15:08:00 EDT, Tablet, [id number], Partial fill upon patientrequest if the prescription [...] Care Physician Member Role: PCP Address: Address: [address] [place] [address]- Care Team Related Persons Name: NELL ZABALA
--- OUTSIDE RECORDS SUMMARY | 2022-09-28 03:52 | XMS_ITS | Continuity of Care Document ---
Author Name Unknown Organization [facility] Address [address] [place] [address]- Care Team Providers Care Internet Assessor Name Role Phone Paras Santos DO Primary Care Physician [phone] Encounter [facility] ACCT R [id number] Date(s): 11/17/21 - 12/17/[address] [address]- Attending Physician: Jorge Robins Admitting Physician: AdmJorge balderas Referring Physician: AdmtrJorge Allergies, Adverse Reactions, Alerts No Known Allergies Medications Multivitamins with Vitamin B Complex, Vitamin C, [...] Refills, Maintenance, 11/17/21 15:08:00 EDT, Tablet, [id number], Partial fill upon patientrequest if the prescription [...] atus Informant Obese class I Confirmed Active Social History Social History Type Response Smoking Status Never (less than 100 in lifetime) entered on: 11/17/21 Sex Patient Care team information Personnel Name: Paras Santos DO Address: Address: [address] [place] [address] Adult [place], [place] [address]
--- OUTSIDE RECORDS SUMMARY | 2022-09-28 03:52 | XMS_ITS | Continuity of Care Document ---
Author Name Unknown Organization [facility] Address [address] [place] [address]- Care Team Providers Care Criminalist Technician Name Role Phone Choco Álvarez MD Primary Care Physician Encounter [facility] Date(s): 05/20/22 - 08/04/22 [facility] [address] [place] [address]- Attending Physician: Choco Álvarez MD Admitting Physician: Choco Álvarez MD Allergies, Adverse Reactions, Alerts No Known Allergies [...] 04/20/22 6:57:00 EST, Route to Pharmacy Electronically, [facility]/pharmacy #[id number], Partial fill upon patien... Start Date: 04/20/22 Status: Ordered docusate sodium 100 mg oral tablet = 100 mg, By Mouth, 2 times a day, # 30 tablet, 0 Refills, Maintenance, 04/20/22 6:57:00 EST, Tablet, [facility]/pharmacy #[id number], Partial fill upon patient [...] Replace Required Details, Route to Pharmacy Electronically, [facility]/pharmacy #[id number], Partial fill... Start Date: [...] 12 Refills, Maintenance, 05/30/22 10:00:00 EDT, Tablet, [facility]/pharmacy #[id number], Partial fill upon patient request if the prescription is for a schedule II opioid drug., 1 tablet By Mouth Daily, 150, cm, 05/30/22 9:4... Start Date: 05/30/22 Status: Ordered Multivitamins with Vitamin B Complex, Vitamin C, Minerals and L- Methylfolate oral capsule 1 capsule, By Mouth, Daily, # 30 capsule, 5 Refills, Maintenance, 11/17/21 15:08:00 EDT, Capsule, [facility]/pharmacy #[id number], Partial fill upon patient [...] Primary Care Member Role: PCP Address: Address: [address] [place] [address] [place] [address]- Care Team Related Persons Name: MARCIA HASSAN Address: AMER[employer] Address: home [address] [place] [address] Name: NELL ZABALA Address: [address] [place] [address]
--- OUTSIDE RECORDS SUMMARY | 2022-09-28 03:52 | XMS_ITS | Continuity of Care Document ---
Author Name Unknown Organization [facility] Address [address] [place] [address]- Care Team Providers Care Pomology Teacher Name Role Phone Paras Santos DO Primary Care Physician [phone] [facility] [facility] Date(s): 10/18/21 - 12/17/[address] [address]- Attending Physician: Not on Staff, Attending MD Allergies, Adverse Reactions, Alerts No Known [...] Personnel Name: Paras Santos DO Address: Address: [address] [place] [address] [place], [place] [address]
--- OUTSIDE RECORDS SUMMARY | 2022-09-28 03:52 | XMS_ITS | Continuity of Care Document ---
Author Name Unknown Organization [facility] Address [address] [place] [address]- Care Team Providers Care Coating And Baking Operator Name Role Phone Henri HENDRICKSON, Choco Jones Primary Care Physician Encounter [facility] Date(s): 03/15/22 - 04/14/22 [facility] [address] [address]- Allergies, Adverse Reactions, Alerts No Known Allergies Immunizations Given and Recorded Vaccine Date Status Refusal Reason tetanus/diphtheria/pertussis, acel(Tdap) 01/18/22 Given influenza virus vaccine, inactivated 01/18/22 Give n Medications Aspirin Low Dose 81 mg oral delayed release tablet 2 tablet, By Mouth, Daily, # 60 tablet, 1 Refills, Maintenance, 03/26/22 11:09:00 EST, [id number], 150, cm, 03/22/22 13:10:00 EST, Height, 72.1, kg, 12/08/21 8:37:00 EDT, Dry Weight Start Date: 03/26/22 Status: Ordered [facility] DOXYLAMINE 25 MG TAB [facility] DOXY[facility]AMINE 25 MG TAB, See Instructions, # 45 tablet, 1 Refills, Maintenance, TAKE 1/2 A TAB 3 TIMES A DAY WITH ONE TAB OF PYRIDOXINE FOR PEVENTION OF N/V IN , 03/01/22 15:37:00 EST, 150,cm, 02/22/22 11:43:00 EST, Height, 72.1, kg, ... Start Date: 03/01/22 Status: Ordered famotidine 10 mg oral tablet 1 tablet = 10 mg, By Mouth, 2 times a day, # 60 tablet, 1 Refills, Maintenance, 03/15/22 19:03:00 EST, Tablet, [id number], Partial fill upon patient request if the prescription is for a schedule II opioid drug., 150, cm, 03/15/22 18:54:00 EST,... Start Date: 03/15/22 Status: Ordered ferrous gluconate 324 mg oral tablet 1 tablet = 324 mg, By Mouth, 3 times a day, # 100 tablet, 1 Refills, Maintenance, 02/16/22 4:14:00 EST, Tablet, [id number], Partial fill upon patient request if the prescription is for a schedule II opioid drug., 150, cm, 01/18/22 14:39:00 EST... Start Date: 02/16/22 Status: Ordered Multivitamins with Vitamin B Complex, [...] FOR NAUSEA AND VOMITING, # 50 tablet, 2 Refills, Maintenance, 02/28/22 11:29:00 EST, [id number], 150, cm, 02/22/22 11:43:00 EST, Height, 72.1, kg, 12/08/21 8:37:00 EDT, Dry Weight Start Date: 02/28/22 Status: Ordered Problem List Condition Confirmation Course Effective Dates Status Health St atus Informant Obese class I Confirmed Active Rh negative Confirmed Active Social History Social History Type Response Smoking Status Never (less than 100 in lifetime) entered on: 11/17/21 Sex Patient Care team information Care Team Personnel Name: Choco Álvarez MD Position: S Primary Care Physician Member Role: PCP Address: Address: [address] [place] [address] [place] [address]- Care Team Related Persons Name: NELL ZABALA Address: home [address] [place] [address]
--- OUTSIDE RECORDS SUMMARY | 2022-09-28 03:52 | XMS_ITS | Continuity of Care Document ---
Author Name Unknown Organization [facility] Address [address] [place] [address]- Care Team Providers Care Lav Crewman Name Role Phone Henri HENDRICKSON, Choco Jones Primary Care Physician Encounter [facility] Date(s): 05/30/22 - 06/29/[address] [address]- Attending Physician: Jorge Robins Admitting Physician: AdmJorge [...] 04/20/22 6:57:00 EST, Route to Pharmacy Electronically, [facility]/pharmacy #[id number], Partial fill upon patien... Start Date: 04/20/22 Status: Ordered docusate sodium 100 mg oral tablet = 100 mg, By Mouth, 2 times a day, # 30 tablet, 0 Refills, Maintenance, 04/20/22 6:57:00 EST, Tablet, [facility]/pharmacy #[id number], Partial fill upon patient request [...] Replace Required Details, Route to Pharmacy Electronically, [facility]/pharmacy #[id number], Partial fill... Start Date: 05/30/22 Status: [...] 12 Refills, Maintenance, 05/30/22 10:00:00 EDT, Tablet, [facility]/pharmacy #[id number], Partial fill upon patient request if the prescription is for a schedule II opioid drug., 1 tablet By Mouth Daily, 150, cm, 05/30/22 9:4... Start Date: 05/30/22 Status: Ordered Multivitamins with Vitamin B Complex, Vitamin C, Minerals and L- Methylfolate oral capsule 1 capsule, By Mouth, Daily, # 30 capsule, 5 Refills, Maintenance, 11/17/21 15:08:00 EDT, Capsule, [facility]/pharmacy #[id number], Partial fill upon patient request [...] Care Physician Member Role: PCP Address: Address: [address] [place] [address]- Care Team Related Persons Name: SONYA MARCIA Address: [employer] Address: home [address] [place] [address] [place] Name: NELL ZABALA Address: home [address] [place] [address] [place] [address]
--- OUTSIDE RECORDS SUMMARY | 2022-09-28 03:52 | XMS_ITS | Continuity of Care Document ---
Author Name Unknown Organization [facility] Address [address] [place] [id number]- Care Team Providers Care Dehairer Name Role Phone Henri HENDRICKSON, Choco Jones Primary Care Physician Encounter [facility] Date(s): 04/13/22 - 05/13/[address] [address]- Allergies, Adverse Reactions, Alerts No Known Allergies [...] 04/20/22 6:57:00 EST, Route to Pharmacy Electronically, [id number], Partial fill upon patien... Start Date: 04/20/22 Status: Ordered docusate sodium 100 mg oral tablet = 100 mg, By Mouth, 2 times a day, # 30 tablet, 0 Refills, Maintenance, 04/20/22 6:57:00 EST, Tablet, [id number], Partial fill upon patient request if the prescription is for a schedule II opioid drug., 150, cm, 04/20/22 0:53:00 EST, Height, 7... Start Date: 04/20/22 Status: Ordered famotidine 10 mg oral tablet 1 tablet = 10 mg, By Mouth, 2 times a day, # 60 tablet, 1 Refills, Maintenance, 03/15/22 19:03:00 EST, Tablet, [facility]/pharmacy #[id number], Partial fill upon patient request if the prescription is for a schedule II opioid drug., 150, cm, 03/15/22 18:54:00 EST,... Start Date: 03/15/22 Status: Ordered ferrous gluconate 324 mg oral tablet 1 tablet = 324 mg, By Mouth, 3 times a day, # 100 tablet, 1 Refills, Maintenance, 02/16/22 4:14:00 EST, Tablet, [facility]/pharmacy #[id number], Partial fill upon patient request if [...] 04/20/22 6:57:00 EST, Route to Pharmacy Electronically, [facility]/pharmacy #[id number], Partial fill upon patient request if the prescriptio... Start Date: 04/20/22 Status: Ordered Multivitamins with Vitamin B Complex, Vitamin C, Minerals and L- Methylfolate oral capsule 1 capsule, By Mouth, Daily, # 30 capsule, 5 Refills, Maintenance, 11/17/21 15:08:00 EDT, Capsule, [facility]/pharmacy #[id number], Partial fill upon patient request if the prescription is for a schedule II opioiddrug., 1 capsule By Mouth Daily,x30 days, 150, cm,... Start Date: 11/17/21 Stop Date: 05/16/22 Status: Ordered pyridoxine 25 mg oral tablet 1 tablet, By Mouth, Every 6 hours, PRN NEEDED FOR NAUSEA AND VOMITING, # 50 tablet, 3 Refills, Maintenance, 04/25/22 8:30:00 EST, [id number], 150, cm, 04/20/22 9:49:00 EST, Height, 73.3, kg, 04/15/22 12:06:00 EST, Dry Weight Start Date: 04/25/22 Status: Ordered simethicone 80 mg oral tablet, chewable 80 mg, Chew, 3 times a day, PRN, # 20 tablet, Refills 0, Tot. Refills 0, Maintenance, Gas, 236:57:00 EST, Route to Pharmacy Electronically, [facility]/pharmacy #[id number], Partial fill upon patient request if the [...] Care Physician Member Role: PCP Address: Address: [address] [place] [address] [place] [address]- Care Team Related Persons Name: MARCIA HASSAN Address: [employer] Address: [address] [place] [address] [place] Name: NELL ZABALA Address: [address] [place] [address]
--- OUTSIDE RECORDS SUMMARY | 2022-09-28 03:52 | XMS_ITS | Continuity of Care Document ---
Author Name Unknown Organization [facility] Address [address] [place] [address]- Care Team Providers Care Rag Room Supervisor Name Role Phone Choco Álvarez MD Primary Care Physician Encounter [facility] Date(s): 12/29/21 - 01/28/22 [facility] [address] [place] [id number]- Attending Physician: Jorge Robins Admitting Physician: AdmtrJorge Referring Physician: Admtr, ArElaine Allergies, Adverse Reactions, Alerts No Known Allergies Immunizations Given and Recorded Vaccine Date Status Refusal Reason tetanus/diphtheria/pertussis, acel(Tdap) 01/18/22 Given influenza virus vaccine, inactivated 01/18/22 Give n Medications Aspirin Low Dose 81 mg oral delayed release tablet 2 tablet, By Mouth, Daily, # 60 tablet, 1 Refills, Maintenance, 01/18/22 9:28:00 EST, [id number], 150, cm, 12/29/21 8:57:00 EDT, Height, 72.1, kg, 12/08/21 8:37:00 EDT, Dry Weight Start Date: 01/18/22 Status: Ordered Multivitamins with Vitamin B Complex, Vitamin C, Minerals and L- Methylfolate oral capsule 1 capsule, By Mouth, Daily, # 30 capsule, 5 Refills, Maintenance, 11/17/21 15:08:00 EDT, Capsule, [id number], Partial fill upon patient request if the prescription is for a schedule II opioiddrug., 1 capsule By Mouth Daily,x30 days, 150, cm,... Start Date: 11/17/21 Stop Date: 05/16/22 Status: Ordered pyridoxine 25 mg oral tablet 1 tablet = 25 mg, By Mouth, Every 6 hours, PRN Nausea & Vomiting, take as needed, # 50 tablet, 2 Refills, Maintenance, 11/17/21 15:08:00 EDT, Tablet, [id number], Partial fill upon patientrequest if the prescription [...] Personnel Name: Henri HENDRICKSON, Choco Jones Position: S Primary Care Physician Member Role: PCP Address: Address: [address] [place] [address] [place] [address]- Care Team Related Persons Name: NELL ZABALA
--- OUTSIDE RECORDS SUMMARY | 2022-09-28 03:52 | XMS_ITS | Continuity of Care Document ---
Author Name Unknown Organization [facility] Address [address] [place] [address]- Care Team Providers Care Wastewater Engineer Name Role Phone Choco Álvarez MD Primary Care Physician [phone] Encounter [facility] Date(s): 02/15/22 - 02/15/[address] [address]- Discharge Disposition: Transferred to [facility]-term [facility] hospit Attending Physician: Larry Ogden MD Admitting Physician: Larry Ogden MD Referring Physician: Not on Staff, Referring MD Allergies, Adverse Reactions, Alerts No Known Allergies Immunizations Given and Recorded Vaccine Date Status Refusal Reason tetanus/diphtheria/pertussis, acel(Tdap) 01/18/22 Given influenza virus vaccine, inactivated 01/18/22 Give n Medications Aspirin Low Dose 81 mg oral delayed release tablet 2 tablet, By Mouth, Daily, # 60 tablet, 1 Refills, Maintenance, 01/18/22 9:28:00 EST, [id number], 150, cm, 12/29/21 8:57:00 EDT, Height, 72.1, kg, 12/08/21 8:37:00 EDT, Dry Weight Start Date: 01/18/22 Status: Ordered ferrous gluconate 324 mg oral tablet 1 tablet = 324 mg, By Mouth, 3 times a day, # 100 tablet, 1 Refills, Maintenance, 02/16/22 4:14:00 EST, Tablet, [id number], Partial fill upon patient request if the [...] II opioid... Start Date: 11/17/21 Status: Ordered Problem List Condition Confirmation Course Effective Dates Status Health St atus Informant Obese class I Confirmed Active Rh negative Confirmed Active Social History Social History Type Response Smoking Status Never (less than 100 in lifetime) entered on: 11/17/21 Sex Patient Care team information Care Team Personnel Name: Henri HENDRICKSON, Choco Jones Position: [facility] Primary Care Physician Member Role: PCP Address: Address: [address] [place] [id number]- Care Team Related Persons Name: NELL ZABALA Address: [address] [place] [address]
[2022-09-28] MEDS: 0.9 % Sodium Chloride 1,000 ML 100 ML IVCONT ×3 (04:16→23:33)
--- NOTE | 2022-09-28 05:26 | PC.NURSE ---
pt asleep comfortably on stretcher. respirations even and unlabored, pt in no apparent distress. call lopez within reach. pt told to notify RN if pain increases. will ctm.
--- NOTE | 2022-09-28 06:09 | MHC.EDTECH ---
Hourly rounds completed, vitals taken and are low at 100/50,RN Dania made aware. Patient is resting comfortably at this time. Call lopez within reach
--- NOTE | 2022-09-28 07:24 | P.HPGS_ITS ---
History of Present Illness History of Present Illness Date of Service: 09/28/22 Chief complaint: Abdominal Pain Narrative: Lucy Villa is a 22 year old female with history of biliary colic who presents here with a recurrent episode. She patient is approximately 6 months . She has had several bouts of right upper quadrant pain radiating around to her back with associated fatty food intolerance. She otherwise has regular bowel habits. She is unsure she has never been jaundiced before but she has noticed her urine has been dark for several months time. Past surgical history most noteworthy for section April. Medications include control pill chart was reviewed patient evaluated only. Chart was reviewed and patient evaluated. Sonogram demonstrates cholelithiasis and dilation of common bile duct. Bilirubin 1.7. [facility] Surgical History Surgical History (Updated 09/28/22 @ 00:45 by Anabel Solano MD) History of Social History Social History Patient Tobacco Use Status: Never used Tobacco Advance Directives: No Advance Directives Information Provided: Yes Nutrition Risks: No Nutritional Risk Patient : No Meds Allergies Allergy/AdvReac Type Severity Reaction Status Date / Time No Known Allergies Allergy Unverified 11/27/19 16:53 Active Medications: Current Medications Sodium Chloride (Ns) 1,000 mls @ 100 mls/hr IVCONT .Q10H [facility] Last Admin: 09/28/22 04:16 Dose: 100 mls/hr Ondansetron HCl (Ondansetron Hcl 4 Mg/2 Ml Vial) 4 mg IVPUSH Q8H PRN PRN Reason: Nausea and Vomiting Pantoprazole Sodium (Pantoprazole Sodium 40 Mg/10 Ml Vial) 40 mg IVPUSH DAILY [facility] Sodium Chloride (0.9 % Sodium Chloride Flush 3 Ml Syringe) 3 ml IVFLUSH QSHIFT [facility] Physical Exam Vital Signs: Vital Signs: Last Vital Signs Temp 98.0 F 09/28/22 06:04 Pulse 69 09/28/22 06:04 Resp 16 09/28/22 06:04 BP 100/50 L 09/28/22 06:04 Pulse Ox 97 09/28/22 06:04 O2 Del Method Nasal Cannula 09/28/22 06:04 BMI result Body Mass Index 29.3 Eyes: Other: Anicteric Chest: Other: Chest breath sounds bilaterally, HS 1 in 2 GI: Other: Abdomen soft, marked right upper quadrant tenderness. Caesarean section scar. Results Results Labs: Short CBC 09/27/22 Range/Units 23:54 WBC 10.2 (4.8-10.8) X10*3/uL Hgb 13.9 (12.0-16.0) g/dl Hct 41.5 (37.0-47.0) % Plt Count 359 (160-400) X10*3/uL BMP 09/27/22 23:54 Sodium 139 Potassium 3.9 Chloride 105 Carbon Dioxide 24 BUN 10 Creatinine 0.73 Calcium 9.9 Liver Function 09/27/22 Range/Units 23:54 Total Bilirubin 1.7 H (0.0-1.0) mg/dL Direct Bilirubin 0.9 H (0.0-0.5) mg/dL AST 55 H (5-31) U/L ALT 56 H (0-31) U/L Alkaline Phosphatase 146 H (39-117) U/L Albumin 4.4 (3.5-5.0) g/dL Urine 09/28/22 09/28/22 Range/Units 00:55 00:55 Urine Color Yellow Urine Appearance Hazy Urine pH 6.0 (5.0-9.0) Ur Specific [place] >= 1.030 H (1.005-1.025) Urine Protein 30 (1+) H (Neg-Trace) mg/dL Urine Glucose (UA) Negative (Negative) mg/dL Urine Test NEGATIVE (NEGATIVE) Assessment and Plan (1) Recurrent biliary colic: Status: Acute (2) Choledocholithiasis: Status: Acute Plan Patient has recurrent biliary colic and a question of choledocholithiasis. Risks, benefits, alternatives of laparoscopic cholecystectomy possible open with cholangiogram were reviewed with the patient and included but not limited to bleeding, infection, recurrence of symptoms, numbness, pain, scarring, bowel or duct injury or leak, need for ERCP and patient wishes to proceed. All questions were answered. Arrangements will be made for this as an add on case for today. Time Spent With Patient Time: Total time managing care of this patient today ____ minutes. Quality Stroke Does the patient have a stroke diagnosis?: No VTE Prior VTE?: No VTE Risk Level:: Surgical - low VTE Device Contraindication: N/A - Device Ordered VTE Drug Contraindication: Treatment Not Indicated Procedures Date of Service Date of Service: 09/28/22
--- NOTE | 2022-09-28 07:32 | PHA.MEDREC ---
Pharmacy Consult ? Medication Reconciliation Pharmacy has completed the medication reconciliation. Spoke to patient to confirm meds.
--- NOTE | 2022-09-28 08:27 | PM.GICN ---
History of Present Illness Data of Consult Service Date: 09/28/22 Requesting physician: Kita Hernandez Primary Care Provider: Unknown Physician HPI Reason for consult: ? CBD stone This is a 22-year-old female with no significant PMH who is currently admitted to the hospital for recurrent abdominal pain. Gastroenterology has been consulted for question of choledocholithiasis. History obtained from the patient, who states that since Apr, after she had her baby, she has had multiple episodes of right upper quadrant pain prompted by fatty food and associated with nausea, that would last for a few hours. Earlier this week, she had another episode that started on Sunday, but this time did not get better and has persisted for days for which she presented to the ER. Describes the pain as sharp, located in epigastrium and RUQ. radiating to her back as well as her right shoulder. Has had multiple episodes of vomiting with this. No fevers, but does describe some chills. She also reports dark urine, but does not think she noticed any yellowing of her skin. On arrival to the hospital, she was noted to be hemodynamically stable. Labs were significant for elevated LFTs with bilirubin of 1.3, alk-phos of 128, and transaminases x2 UNL. Ultrasound abdomen showed dilated CBD to 11 mm without any distinct stone are acoustic shadowing. She does have multiple gallstones. Review of Systems Review of Systems: Yes all other systems are reviewed and are negative [facility] Surgical History Surgical History History of Social History Social History Patient Tobacco Use Status: Never used Tobacco service: No Meds Allergies Allergy/AdvReac Type Severity Reaction Status Date / Time No Known Allergies Allergy Verified 09/28/22 12:09 Active Medications: Current Medications Sodium Chloride (Ns) 1,000 mls @ 100 mls/hr IVCONT .Q10H [facility] Last Admin: 09/28/22 04:16 Dose: 100 mls/hr Morphine Sulfate (Morphine Sulfate 2 Mg/Ml Cartridge) 2 mg IVPUSH Q4H PRN; Protocol PRN Reason: Pain, Severe (Pain Scale 7-10) Ondansetron HCl (Ondansetron Hcl 4 Mg/2 Ml Vial) 4 mg IVPUSH Q8H PRN PRN Reason: Nausea and Vomiting Pantoprazole Sodium (Pantoprazole Sodium 40 Mg/10 Ml Vial) 40 mg IVPUSH DAILY [facility] Sodium Chloride (0.9 % Sodium Chloride Flush 3 Ml Syringe) 3 ml IVFLUSH QSHIFT [facility] Last Admin: 09/28/22 07:41 Dose: Not Given Home Medications Medication Instructions Recorded Confirmed Last Taken Type levonorgestrel-ethinyl estradiol 1 tab PO DAILY@2230 09/28/22 09/28/22 09/26/22 History 0.1 mg-20 mcg tablet (Vienva) Physical Exam Vital Signs: Vital Signs: Last Vital Signs Temp 98.0 F 09/28/22 06:04 Pulse 69 09/28/22 06:04 Resp 16 09/28/22 06:04 BP 100/50 L 09/28/22 06:04 Pulse Ox 97 09/28/22 06:04 O2 Del Method Nasal Cannula 09/28/22 06:04 BMI result Body Mass Index 29.3 Gen appear: NAD HEENT: nonicteric, no cervical lymphadenopathy Chest: CTA CVS: Regular S1/S2 Abd: soft, tender in RUQ, nondistended, bowel sounds + Ext: no peripheral edema Neuro: A/Ox3, noted to move all extremities spontaneously Psych: interacting appropriately Results Labs 09/27/22 23:54 09/27/22 23:54 Labs: Short CBC 09/27/22 Range/Units 23:54 WBC 10.2 (4.8-10.8) X10*3/uL Hgb 13.9 (12.0-16.0) g/dl Hct 41.5 (37.0-47.0) % Plt Count 359 (160-400) X10*3/uL BMP 09/27/22 23:54 Sodium 139 Potassium 3.9 Chloride 105 Carbon Dioxide 24 BUN 10 Creatinine 0.73 Calcium 9.9 Liver Function 09/27/22 Range/Units 23:54 Total Bilirubin 1.7 H (0.0-1.0) mg/dL Direct Bilirubin 0.9 H (0.0-0.5) mg/dL AST 55 H (5-31) U/L ALT 56 H (0-31) U/L Alkaline Phosphatase 146 H (39-117) U/L Albumin 4.4 (3.5-5.0) g/dL Urine 09/28/22 Range/Units 00:55 Urine Color Yellow Urine Appearance Hazy Urine pH 6.0 (5.0-9.0) Ur Specific [place] >= 1.030 H (1.005-1.025) Urine Protein 30 (1+) H (Neg-Trace) mg/dL Urine Glucose (UA) Negative (Negative) mg/dL Assessment and Plan (1) Elevated LFTs: Status: Acute (2) Recurrent biliary colic: Status: Acute (3) Dilated bile duct: Status: Acute Plan Presentation consistent with recurrent biliary colic. Marked dilation of CBD noted, however no distinct CBD stone was noted. Bilirubin also trending down. ? Passed stone vs ball-valve effect leading to downtrending LFTs. Patient is currently on the schedule for cholecystectomy with IOC tentatively today. If unable to get CCY today, would recommend getting MRI Abd without contrast with MRCP reformats to r/o CBD stone. If CBD stone is confirmed on MRCP or IOC, will need an ERCP for biliary clearance and drainage. This was reviewed with the pt as well as the surgical team. Thank you for allowing me to participate in her care. Please do not hesitate to reach out for any questions or concerns. Time Spent With Patient Time: Total time managing care of this patient today ____ minutes. Procedures Date of Service Date of Service: 09/28/22
[2022-09-28 08:48] LABS: Alanine Aminotransferase 60 U/L (0-31); Albumin Level 3.5 g/dL (3.5-5.0); Alkaline Phosphatase 128 U/L (39-117); Anion Gap 11 (12-20); Aspartate Amino Transferase 61 U/L (5-31); Bilirubin Total 1.3 mg/dL (0.0-1.0); Blood Urea Nitrogen 9 mg/dL (9-16); Calcium 8.4 mg/dL (8.4-10.2); Carbon Dioxide 22 mmol/L (22-29); Chloride 110 mmol/L (96-108); Creatinine Clr Calc Pharmacy 100.1; Estimated Glomerular Filt Rate > 60; Glucose Random 101 mg/dL (60-115); Potassium 3.8 mmol/L (3.3-5.1); Sodium 139 mmol/L (135-145); Total Protein 6.3 g/dL (6.5-8.0)
--- NOTE | 2022-09-28 09:53 | PC.NURSE ---
nurse to nurse given to SSS
[2022-09-28] MEDS: Pantoprazole Sodium 40 MG/10 ML VIAL IVPUSH (10:08)
--- NOTE | 2022-09-28 10:14 | MHC.CM.PN ---
Met with patient in regards to discharge planning. Patient lives with her mother and 4 month old daughter, ambulates independently and had no services prior to coming to the hospital. No services anticipated to be needed because patient is not homebound. PCP is located at the [facility]. However, patient does not remember her PCP's name. licensed investment sales assistant has been asked to verify provider. Patient received 2 Moderna vaccines. Not boosted. Patient's sig other will transport her home when medically stable. Continue to monitor for d/c needs.
--- NOTE | 2022-09-28 12:16 | P.CONAN_ITS ---
HPI - Anesthesia Eval Consult details Narrative: CHoledocholithiasis PMFSH Active Problems Active Problems: All Active Problems (Updated 09/28/22 @ 07:28 by Aj Luis MD) Recurrent biliary colic (Acute) Choledocholithiasis (Acute) Family History Family history of problems with anesthesia: No Surgical History Surgical History History of History of Problems with Anesthesia: No Social History Social History Patient Tobacco Use Status: Never used Tobacco service: No Meds Allergies Allergy/AdvReac Type Severity Reaction Status Date / Time No Known Allergies Allergy Verified 09/28/22 12:09 Active Medications: Current Medications Sodium Chloride (Ns) 1,000 mls @ 100 mls/hr IVCONT .Q10H [facility] Last Admin: 09/28/22 04:16 Dose: 100 mls/hr Morphine Sulfate (Morphine Sulfate 2 Mg/Ml Cartridge) 2 mg IVPUSH Q4H PRN; Protocol PRN Reason: Pain, Severe (Pain Scale 7-10) Non-Formulary Medication (Levonorgestrel-Ethinyl Estrad [Vienva]) 1 tab PO DAILY@2229 [facility] Ondansetron HCl (Ondansetron Hcl 4 Mg/2 Ml Vial) 4 mg IVPUSH Q8H PRN PRN Reason: Nausea and Vomiting Pantoprazole Sodium (Pantoprazole Sodium 40 Mg/10 Ml Vial) 40 mg IVPUSH DAILY [facility] Last Admin: 09/28/22 10:08 Dose: 40 mg Sodium Chloride (0.9 % Sodium Chloride Flush 3 Ml Syringe) 3 ml IVFLUSH QSHIFT [facility] Last Admin: 09/28/22 07:41 Dose: Not Given Home Medications Medication Instructions Recorded Confirmed Last Taken Type levonorgestrel-ethinyl estradiol 1 tab PO DAILY@222909/28/22 09/28/22 09/26/22 History 0.1 mg-20 mcg tablet (Vienva) Exam Exam Date and Time: September 28, 2022 1216 Height,Weight and Vital Signs: Height 4 ft 11 in Weight 65.771 kg Last Vital Signs Temp 97.8 F 09/28/22 12:05 Pulse 71 09/28/22 12:05 Resp 18 09/28/22 12:05 BP 130/78 09/28/22 12:05 Pulse Ox 97 09/28/22 12:05 O2 Del Method Room Air 09/28/22 12:05 Pertinent Lab Results Pertinent Lab Results: Laboratory Tests 09/27/22 09/27/22 09/28/22 23:54 23:54 00:55 WBC 10.2 RBC 5.02 Hgb 13.9 Hct 41.5 MCV 82.7 MCH 27.7 MCHC 33.5 RDW 13.2 Plt Count 359 MPV 10.1 Immature Gran % (Auto) 0.3 Neut % (Auto) 61.8 Lymph % (Auto) 32.5 [place] % (Auto) 5.0 Eos % (Auto) 0.1 Baso % (Auto) 0.3 Lymph # (Auto) 3.3 [place] # (Auto) 0.5 Eos # (Auto) 0.0 Baso # (Auto) 0.0 Abs Immat Gran (auto) 0.03 Absolute Neuts (auto) 6.3 Absolute Nucleated RBC 0.000 Nucleated RBC % (auto) 0.0 Sodium 139 Potassium 3.9 Chloride 105 Carbon Dioxide 24 Anion Gap 14 BUN 10 Creatinine 0.73 Estim Creat Clear Calc 98.8 Estimated GFR > 60 Random Glucose 122 H Calcium 9.9 Total Bilirubin 1.7 H Direct Bilirubin 0.9 H AST 55 H ALT 56 H Alkaline Phosphatase 146 H Total Protein 8.0 Albumin 4.4 Lipase 36 Urine Color Yellow Urine Appearance Hazy Urine pH 6.0 Ur Specific [place] >= 1.030 H Urine Protein 30 (1+) H Urine Glucose (UA) Negative Urine Ketones 15 Urine Blood Trace Urine Nitrite Negative Ur Leukocyte Esterase Small (1+) H Urine RBC 3-5 H Urine WBC 0-5 Ur Squamous Epith Cells 6-10 Urine Bacteria 1+ Hyaline Casts 0-2 Urine Test 09/28/22 09/28/22 00:55 08:24 WBC RBC Hgb Hct MCV MCH MCHC RDW Plt Count MPV Immature Gran % (Auto) Neut % (Auto) Lymph % (Auto) [place] % (Auto) Eos % (Auto) Baso % (Auto) Lymph # (Auto) [place] # (Auto) Eos # (Auto) Baso # (Auto) Abs Immat Gran (auto) Absolute Neuts (auto) Absolute Nucleated RBC Nucleated RBC % (auto) Sodium 139 Potassium 3.8 Chloride 110 H Carbon Dioxide 22 Anion Gap 11 L BUN 9 Creatinine 0.72 Estim Creat Clear Calc 100.1 Estimated GFR > 60 Random Glucose 101 Calcium 8.4 D Total Bilirubin 1.3 H Direct Bilirubin AST 61 H ALT 60 H Alkaline Phosphatase 128 H Total Protein 6.3 L Albumin 3.5 Lipase Urine Color Urine Appearance Urine pH Ur Specific [place] Urine Protein Urine Glucose (UA) Urine Ketones Urine Blood Urine Nitrite Ur Leukocyte Esterase Urine RBC Urine WBC Ur Squamous Epith Cells Urine Bacteria Hyaline Casts Urine Test NEGATIVE Airway Mallampati Class: II TM Dist: >3cm Neck ROM: Full Heart: rrr Lungs: cta Assessment and Plan Assessment Anesthesia Assessment: Anesthesia Plan Discussed and Chart Reviewed Final Anesthetic Review Family History of Problems with Anesthesia: No History of Problems with Anesthesia: No NPO: Yes ASA Class: II Final Preanesthetic Review: No Changes in Pt Med Stat, Meds/Allgs Chart Reviewed, Consent Obtained/Reviewed and Anes Risks/Benef Reviewed Patient Risk: Low Procedure Risk: Intermediate Anesthetic Plan Anesthetic Plan: GA and Agree w/ Assess. and Plan Disposition: Standard PACU
--- NOTE | 2022-09-28 14:41 | W.PM.OPN ---
Operative Note Operative Note Date of Service: 09/28/22 Narrative: Preoperative diagnosis: []Biliary colic, rule out choledocholithiasis Postop diagnosis: [] same Procedure [] laparoscopic cholecystectomy with cholangiogram Surgeon: [] [employer] Lead: [] darian Hernandez Type of Anesthesia: [] general Indication for surgery: [] edematous gallbladder with multiple small gallstones. Intraoperative cholangiogram demonstrated a large cystic duct, free flow of contrast into the extrahepatic biliary system proximally and multiple filling defects in the distal common bile duct with minimal contrast entering the duodenum , consistent with choledocholithiasis . MRI was not available for MRCP to be performed preoperatively today for technical reasons. Findings: [] patient brought to the operating room, placed on operative table in supine position, after adequate level of general anesthesia was induced, the patient's abdomen which was moderately corpulent was prepped and draped in usual sterile fashion. Using an infraumbilical curvilinear incision, Rodriguez technique was used to insufflate the abdominal cavity to 15 mm of CO2. Upper midline and right subcostal ports were placed under direct laparoscopic view, and the patient placed in reverse Trendelenburg. Gallbladder was grasped using laparoscopic graspers, and retracted superiorly and laterally. Common bile duct was identified and preserved throughout the procedure. Cystic artery and cystic duct were each identified, circumferentially skeletonized, traced directly to the gallbladder, and critical view obtained. A clip was placed on the gallbladder side of the cystic duct and a small cholecystodochotomy performed and cholangiocatheter placed into the cystic duct and cholangiogram was performed with findings as noted above. Cystic duct was clipped proximally x3 and transected. Similarly cystic artery was clipped proximally x2 distally x1 and transected. Gallbladder is and cauterized from the gallbladder fossa using Bovie. Specimen was placed in an Endo-Catch bag, a retrieved through the umbilical port. Gallbladder had multiple small gallstones palpated in it. Abdominal cavity was copiously irrigated and secured hemostasis. All ports were removed under direct laparoscopic view. Wounds were closed in the following manner; umbilical wound had its fascia reapproximated using interrupted 0 Vicryl sutures. Skin wounds were closed using subcuticular 4-0 Vicryl sutures followed by Steri-Strips and sterile dressings. Wounds were infiltrated 0.5% Marcaine at completion. Sponge, needle, and instrument counts were reported to be correct. Patient tolerated the procedure well and emerged anesthesia stable condition. EBL minimal. GI service was consulted preop and will be contacted postop for most likely ERCP.
[2022-09-28] MEDS: HYDROmorphone HCl 0.5 MG/0.5 ML SYRINGE 0.25 MG IVPUSH (15:09)
[2022-09-28] MEDS: 0.9 % Sodium Chloride Flush 3 ML SYRINGE IVFLUSH (16:03)
[2022-09-28] MEDS: oxyCODONE HCl Immed Release 5 MG TABLET PO ×2 (19:18→23:19)
[2022-09-28] MEDS: Acetaminophen 325 MG TABLET 650 MG PO (19:19)
[2022-09-29] VITALS (9 sets, daily range): BP systolic 108–149; BP diastolic 65–87; PULSE 54–83; RESP 14–18; TEMP 36–37.1; O2SAT 96–100
[2022-09-29] MEDS: Acetaminophen 325 MG TABLET 650 MG PO ×2 (02:06→07:55)
[2022-09-29] MEDS: Morphine Sulfate 4 MG/ML CARTRIDGE IVPUSH ×2 (06:14→16:49)
[2022-09-29 06:44] LABS: Alanine Aminotransferase 93 U/L (0-31); Albumin Level 3.4 g/dL (3.5-5.0); Alkaline Phosphatase 155 U/L (39-117); Aspartate Amino Transferase 91 U/L (5-31); Bilirubin Direct 1.3 mg/dL (0.0-0.5); Bilirubin Total 1.9 mg/dL (0.0-1.0); Total Protein 6.2 g/dL (6.5-8.0)
[2022-09-29] MEDS: Pantoprazole Sodium 40 MG/10 ML VIAL IVPUSH (07:56)
[2022-09-29] MEDS: oxyCODONE HCl Immed Release 5 MG TABLET PO (07:56)
--- NOTE | 2022-09-29 08:17 | P.PNGS_ITS ---
Subjective Subjective Date of Service: 09/29/22 Interval history: C/o pain at incision sites, shoulders and continued RUQ/back pain. Improved with analgesics. Awaiting ERCP today. Physical Exam Vital Signs: Vital Signs: Last Vital Signs Temp 96.8 F 09/29/22 07:40 Pulse 54 09/29/22 07:40 Resp 16 09/29/22 07:40 BP 112/65 09/29/22 07:40 Pulse Ox 97 09/29/22 07:40 O2 Del Method Room Air 09/29/22 07:40 O2 Flow Rate 2.0 09/28/22 15:56 BMI result Body Mass Index 29.3 Const: General: comfortable, no acute distress and alert Orientation/consciousness: patient oriented x3 Resp: Effort & Inspection: normal respiratory effort GI: Inspection: No distended and Yes incision (clean) Palpation (GI): Soft to palpation Skin: General skin exam: no rashes or lesions noted Neuro: General: patient oriented x3 Objective Data Active Medications Acetaminophen (Acetaminophen 325 Mg Tablet) 650 mg PO Q6H PRN PRN Reason: Pain, Mild (Pain Scale 1-3) Last Admin: 09/29/22 07:55 Dose: 650 mg Documented By: BITA Sodium Chloride (Ns) 1,000 mls @ 100 mls/hr IVCONT .Q10H JAMIE Last Admin: 09/28/22 23:33 Dose: 100 mls/hr Documented By: STEFFEN Morphine Sulfate (Morphine Sulfate 4 Mg/Ml Cartridge) 4 mg IVPUSH Q4H PRN; Protocol PRN Reason: Pain, Severe (Pain Scale 7-10) Last Admin: 09/29/22 06:14 Dose: 4 mg Documented By: STEFFEN Non-Formulary Medication (Levonorgestrel-Ethinyl Estrad [Vienva]) 1 tab PO DAILY@2230 JAMIE Ondansetron HCl (Ondansetron Hcl 4 Mg/2 Ml Vial) 4 mg IVPUSH Q8H PRN PRN Reason: Nausea and Vomiting Last Admin: 09/28/22 17:32 Dose: 4 mg Documented By: GLORY Oxycodone HCl (Oxycodone Hcl Immed Release 5 Mg Tablet) 5 mg PO Q4H PRN PRN Reason: Pain, Moderate(Pain Scale 4-6) Last Admin: 09/29/22 07:56 Dose: 5 mg Documented By: BITA Pantoprazole Sodium (Pantoprazole Sodium 40 Mg/10 Ml Vial) 40 mg IVPUSH DAILY [facility] Last Admin: 09/29/22 07:56 Dose: 40 mg Documented By: BITA Sodium Chloride (0.9 % Sodium Chloride Flush 3 Ml Syringe) 3 ml IVFLUSH QSHIFT [facility] Last Admin: 09/29/22 07:49 Dose: Not Given Documented By: BITA Non-Admin Reason: IV Running Labs 09/27/22 23:54 09/28/22 08:24 Labs: Laboratory Results - last 24 hr 09/28/22 09/29/22 08:24 05:50 Anion Gap 11 L Estim Creat Clear Calc 100.1 Estimated GFR > 60 Random Glucose 101 Calcium 8.4 D Total Bilirubin 1.3 H 1.9 H Direct Bilirubin 1.3 H AST 61 H 91 H ALT 60 H 93 H Alkaline Phosphatase 128 H 155 H Total Protein 6.3 L 6.2 L Albumin 3.5 3.4 L Procedures Date of Service Date of Service: 09/29/22 Progress Note: A&P Assessment and plan (1) Choledocholithiasis: Status: Acute (2) Recurrent biliary colic: Status: Acute Plan 22 year old female admitted with biliary colic, question of choledocolithiasis now POD #1 s/p lap ccy with IOC which showed multiple small filling defects in distal CBD. Doing well post op with benign abdomen but reports continued RUQ and back pain. LFTs trending up this AM. Awaiting ERCP today. Doing well from surgical standpoint and likely ready for discharge to home tomorrow following ERCP. Time Spent With Patient Time: Total time managing care of this patient today ____ minutes. Quality Stroke Does the patient have a stroke diagnosis?: No VTE Prior VTE?: No VTE Risk Level:: Surgical - low VTE Device Contraindication: N/A - Device Ordered VTE Drug Contraindication: Treatment Not Indicated
--- NOTE | 2022-09-29 08:48 | MHC.SHP ---
Pre-Procedural Eval Section A Date of Service: 09/29/22 The patient is an INPATIENT: Yes Changes since office visit: No Cold of Flu in the past 2 weeks, No New Medical Problems, No Changes in Medication and No Patient answered all questions The History & Physical has been completed within 30 days and I have reviewed it.: Yes Section B Chief Complaint: Abdominal Pain Allergies: Allergies Allergy/AdvReac Type Severity Reaction Status Date / Time No Known Allergies Allergy Verified 09/28/22 12:09 Plan I have reviewed the history and physical and performed a pertinent physical examination on my patient. No changes have occurred unless specified. Time Spent With Patient Time: Total time managing care of this patient today ____ minutes.
--- NOTE | 2022-09-29 10:08 | HO.POSTANES ---
Post Anesthesia Evaluation Post Anesthesia Evaluation Date of Service: 09/29/22 Vital Signs: Vital Signs Temp Pulse Resp BP Pulse Ox O2 Del Method 09/29/22 07:40 96.8 F 54 16 112/65 97 Room Air 09/29/22 02:28 97 F 74 18 108/66 96 Room Air 09/28/22 23:39 98 F 62 16 96/55 L 96 Room Air Anesthesia: General Endotracheal-GETA Mental Status: Awake Pain Control: Satisfactory (difficulty with pain control) Nausea/Vomiting: Mild Hydration: Adequate Anesthesia-Related Issues: No Anes. Related Issues
--- NOTE | 2022-09-29 12:02 | PC.NURSE ---
pre-testing not needed due to patient having a procedure here yesterday.
--- NOTE | 2022-09-29 12:08 | P.CONAN_ITS ---
HPI - Anesthesia Eval Consult details Narrative: leo docholythiasis, ercp PMFSH Active Problems Active Problems: All Active Problems (Updated 09/28/22 @ 13:56 by Poppy Robledo MD) Choledocholithiasis (Acute) Recurrent biliary colic (Acute) Elevated LFTs (Acute) Dilated bile duct (Acute) Family History Family history of problems with anesthesia: No Surgical History Surgical History History of Hx laparoscopic cholecystectomy History of Problems with Anesthesia: No Social History Social History Household Members: Family Housing: House Do you presently have visiting nurse or other home services: No Patient Tobacco Use Status: Never used Tobacco e-Cigarette/Vaping Use: Never Used service: No Meds Allergies Allergy/AdvReac Type Severity Reaction Status Date / Time No Known Allergies Allergy Verified 09/29/22 12:01 Active Medications: Current Medications Acetaminophen (Acetaminophen 325 Mg Tablet) 650 mg PO Q6H PRN PRN Reason: Pain, Mild (Pain Scale 1-3) Last Admin: 09/29/22 07:55 Dose: 650 mg Sodium Chloride (Ns) 1,000 mls @ 100 mls/hr IVCONT .Q10H [facility] Last Admin: 09/28/22 23:33 Dose: 100 mls/hr Morphine Sulfate (Morphine Sulfate 4 Mg/Ml Cartridge) 4 mg IVPUSH Q4H PRN; Protocol PRN Reason: Pain, Severe (Pain Scale 7-10) Last Admin: 09/29/22 06:14 Dose: 4 mg Non-Formulary Medication (Levonorgestrel-Ethinyl Estrad [Vienva]) 1 tab PO DAILY@2229 [facility] Ondansetron HCl (Ondansetron Hcl 4 Mg/2 Ml Vial) 4 mg IVPUSH Q8H PRN PRN Reason: Nausea and Vomiting Last Admin: 09/28/22 17:32 Dose: 4 mg Oxycodone HCl (Oxycodone Hcl Immed Release 5 Mg Tablet) 5 mg PO Q4H PRN PRN Reason: Pain, Moderate(Pain Scale 4-6) Last Admin: 09/29/22 07:56 Dose: 5 mg Pantoprazole Sodium (Pantoprazole Sodium 40 Mg/10 Ml Vial) 40 mg IVPUSH DAILY [facility] Last Admin: 09/29/22 07:56 Dose: 40 mg Sodium Chloride (0.9 % Sodium Chloride Flush 3 Ml Syringe) 3 ml IVFLUSH QSHIFT [facility] Last Admin: 09/29/22 07:49 Dose: Not Given Home Medications Medication Instructions Recorded Confirmed Last Taken Type levonorgestrel-ethinyl estradiol 1 tab PO DAILY@222909/28/22 09/28/22 09/26/22 History 0.1 mg-20 mcg tablet (Vienva) Exam Exam Date and Time: September 29, 2022 1208 Height,Weight and Vital Signs: Height 4 ft 11 in Weight 65.771 kg Last Vital Signs Temp 97.6 F 09/29/22 11:59 Pulse 64 09/29/22 11:59 Resp 18 09/29/22 11:59 BP 119/70 09/29/22 11:59 Pulse Ox 98 09/29/22 11:59 O2 Del Method Room Air 09/29/22 11:59 O2 Flow Rate 2.0 09/28/22 15:56 Pertinent Lab Results Pertinent Lab Results: Laboratory Tests 09/27/22 09/27/22 09/28/22 23:54 23:54 00:55 WBC 10.2 RBC 5.02 Hgb 13.9 Hct 41.5 MCV 82.7 MCH 27.7 MCHC 33.5 RDW 13.2 Plt Count 359 MPV 10.1 Immature Gran % (Auto) 0.3 Neut % (Auto) 61.8 Lymph % (Auto) 32.5 [place] % (Auto) 5.0 Eos % (Auto) 0.1 Baso % (Auto) 0.3 Lymph # (Auto) 3.3 [place] # (Auto) 0.5 Eos # (Auto) 0.0 Baso # (Auto) 0.0 Abs Immat Gran (auto) 0.03 Absolute Neuts (auto) 6.3 Absolute Nucleated RBC 0.000 Nucleated RBC % (auto) 0.0 Sodium 139 Potassium 3.9 Chloride 105 Carbon Dioxide 24 Anion Gap 14 BUN 10 Creatinine 0.73 Estim Creat Clear Calc 98.8 Estimated GFR > 60 Random Glucose 122 H Calcium 9.9 Total Bilirubin 1.7 H Direct Bilirubin 0.9 H AST 55 H ALT 56 H Alkaline Phosphatase 146 H Total Protein 8.0 Albumin 4.4 Lipase 36 Urine Color Yellow Urine Appearance Hazy Urine pH 6.0 Ur Specific [place] >= 1.030 H Urine Protein 30 (1+) H Urine Glucose (UA) Negative Urine Ketones 15 Urine Blood Trace Urine Nitrite Negative Ur Leukocyte Esterase Small (1+) H Urine RBC 3-5 H Urine WBC 0-5 Ur Squamous Epith Cells 6-10 Urine Bacteria 1+ Hyaline Casts 0-2 Urine Test 09/28/22 09/28/22 09/29/22 00:55 08:24 05:50 WBC RBC Hgb Hct MCV MCH MCHC RDW Plt Count MPV Immature Gran % (Auto) Neut % (Auto) Lymph % (Auto) [place] % (Auto) Eos % (Auto) Baso % (Auto) Lymph # (Auto) [place] # (Auto) Eos # (Auto) Baso # (Auto) Abs Immat Gran (auto) Absolute Neuts (auto) Absolute Nucleated RBC Nucleated RBC % (auto) Sodium 139 Potassium 3.8 Chloride 110 H Carbon Dioxide 22 Anion Gap 11 L BUN 9 Creatinine 0.72 Estim Creat Clear Calc 100.1 Estimated GFR > 60 Random Glucose 101 Calcium 8.4 D Total Bilirubin 1.3 H 1.9 H Direct Bilirubin 1.3 H AST 61 H 91 H ALT 60 H 93 H Alkaline Phosphatase 128 H 155 H Total Protein 6.3 L 6.2 L Albumin 3.5 3.4 L Lipase Urine Color Urine Appearance Urine pH Ur Specific [place] Urine Protein Urine Glucose (UA) Urine Ketones Urine Blood Urine Nitrite Ur Leukocyte Esterase Urine RBC Urine WBC Ur Squamous Epith Cells Urine Bacteria Hyaline Casts Urine Test NEGATIVE Airway Mallampati Class: II Neck ROM: Full Heart: rrr Lungs: cta Assessment and Plan Assessment Anesthesia Assessment: Anesthesia Plan Discussed Final Anesthetic Review Family History of Problems with Anesthesia: No History of Problems with Anesthesia: No NPO: Yes ASA Class: II Final Preanesthetic Review: No Changes in Pt Med Stat, Meds/Allgs Chart Reviewed, Consent Obtained/Reviewed and Anes Risks/Benef Reviewed Patient Risk: Low Procedure Risk: Intermediate Anesthetic Plan Anesthetic Plan: GA and Agree w/ Assess. and Plan Disposition: Standard PACU
--- NOTE | 2022-09-29 12:24 | PC.NURSE ---
report given to ramos prabhakar rn at this time. aware that indomethacin suppositories are needed from pharmacy.
--- NOTE | 2022-09-29 14:05 | PC.NURSE ---
Report obtained from preop nurse Kellee. During report, this senior copywriter made aware that Kellee spoke to Carrie from pharmacy who will bring down the Indomethacin as soon as patient is ready to go into the procedure room, as It has to be refrigerated . Dr. Stern at bedside to see patient. Call placed to pharmacy by Lester PERERA who spoke to Marly from pharmacy and requested medication be brought down as patient was ready to go into the OR any minute . Ten minutes later, call placed to pharmacy by this senior copywriter again inquiring where medication was, spoke to Marly who stated yup its on the way . Jan ABREU RN, Dr. Stern, and Kim Paige as bedside ready to go into OR. All parties agreed to enter OR and medication would be brought into OR 6 as soon as it arrived to preop. Ten minutes later, third call placed to pharmacy by this senior copywriter inquiring about medication. Marly from pharmacy stated its in the fridge . Fridge checked, no Indomethacin present. Call placed to pharmacy for the fourth time, Fernanda (unknown name) stated that it was delivered to [place] [id number] refrigerator. This senior copywriter requested medication be brought to OR room 6 STAT by pharmacy. OR 6 made aware of situation.
--- NOTE | 2022-09-29 14:12 | MHC.CM.PN ---
per rounds no dc date at this time dc plan remains home no services
--- NOTE | 2022-09-29 14:48 | PM.EVENT ---
Event Note Date of Service: 09/29/22 Event Note: GI dictated Pt seen in preop, ERCP risks and benefits discussed and explained. ERCP showed a single small cbd stone, removed following sphincterotomy. Good drainage of clear bile post procedure. Rec: Advance diet d/c when stable. Time Spent With Patient Time: Total time managing care of this patient today ____ minutes.
--- NOTE | 2022-09-29 14:51 | P.BOP_ITS ---
Brief Operative Note Date of Service: 09/29/22 Pre-op diagnosis: cbd stone Post-op diagnosis: same Surgeon: Diony Stern Anesthesia: GETA Was an Machine Clothing Replacer used for this Procedure?: No Estimated blood loss (mL): 0 Pathology: other Condition: stable Disposition: PACU
[2022-09-29] MEDS: 0.9 % Sodium Chloride 1,000 ML 100 ML IVCONT (16:50)
--- NOTE | 2022-09-29 20:52 | OP_ITS ---
DATE OF SERVICE: 09/29/2022 SURGEON: Diony Stern MD INDICATIONS: Abnormal cholangiogram showing filling defects consistent with stones. PREOPERATIVE DIAGNOSIS: POSTOPERATIVE DIAGNOSIS: PROCEDURE PERFORMED: ERCP with sphincterotomy and biopsy. ESTIMATED BLOOD LOSS: COMPLICATIONS: ANESTHESIA: General anesthesia. ASSISTANTS: SPECIMENS: DESCRIPTION OF PROCEDURE: A history and physical was performed. The risks and benefits of the procedure were explained to the patient and informed consent was obtained. The patient was placed in a prone position with a wedge on the right shoulder. The Olympus therapeutic duodenum scope was introduced into the esophagus, stomach, and duodenum. Examination was performed. The scope was removed. She tolerated the procedure well and was taken to recovery in stable condition. FINDINGS: Endoscopy: Limited examination of the esophagus, stomach, and duodenum was within normal limits. Several benign-appearing gastric polyps were identified in the body of the stomach. One of these was biopsied. The major papilla appeared normal. Bile was flowing prior to instrumentation. The common bile duct was cannulated with a guidewire passed through the sphincterotome, and cholangiography was obtained, which showed at least 1 filling defect in the common bile duct consistent with a stone. 8 mm sphincterotomy was performed with no immediate complications and a single stone was removed using the sphincterotome. Next, multiple balloon sweeps were done with no further stones being identified or removed. Occlusion cholangiography showed no further filling defects. No pancreatogram was attempted or obtained. IMPRESSION: 1. Common bile duct stone. 2. Gastric polyps. RECOMMENDATION: 1. Follow up the biopsy results. 2. Advance diet. The patient may be discharged later today pending her clinical course. MD BASIA George/DOMENICAL / [phone]
--- NOTE | 2022-09-29 21:12 | CONS_ITS ---
DATE OF SERVICE: 09/29/2022 REFERRING PHYSICIAN: Dr. Luis REASON FOR CONSULTATION: Abnormal cholangiogram with question of common bile duct stone. HISTORY OF PRESENT ILLNESS: The patient is a pleasant 22-year-old woman who underwent laparoscopic cholecystectomy yesterday for biliary colic with right upper quadrant pain radiating to her back. At the time of laparoscopic cholecystectomy. She had intraoperative cholangiography, which showed what appears to be least 1 filling defect consistent with a common bile duct stone. ERCP is requested. Liver function tests are elevated. Currently, she has no pain. PAST MEDICAL HISTORY: section 6 months ago. CURRENT MEDICATIONS: Current medication list is reviewed in the chart. ALLERGIES: THERE ARE NONE REPORTED. FAMILY HISTORY: This is reviewed with the patient and is positive for gallbladder disease in her mother. SOCIAL HISTORY: She denies tobacco, alcohol, and substance abuse. REVIEW OF SYSTEMS: SKIN: No pruritus. HEENT: Negative. CARDIOPULMONARY: No shortness of breath or chest pain. GASTROINTESTINAL: As above. GENITOURINARY: Negative. NEUROPSYCHIATRIC: Negative. PHYSICAL EXAMINATION: GENERAL: Shows a pleasant female, lying comfortably on a stretcher. VITAL SIGNS: Reviewed in the electronic medical record and are stable. SKIN: Anicteric. HEENT: Shows no scleral icterus. NECK: Without lymphadenopathy or thyromegaly. LUNGS: Clear. HEART: Shows a regular rate and rhythm. S1, S2. No murmur. ABDOMEN: Shows dressings in place from her laparoscopic cholecystectomy yesterday. Bowel sounds are present. There is no focal tenderness. EXTREMITIES: Without edema. LABORATORY DATA AND IMAGING STUDIES: Reviewed. IMPRESSION: Common bile duct stone. I have discussed ERCP with the patient including risks and benefits. She understands these and agrees to proceed. Thanks for asking me to see her. I will follow her in the hospital with you. MD BASIA George/NU / [phone]
--- NOTE | 2022-10-11 11:37 | PM.DS ---
DS: Providers Provider Date of Service: 09/29/22 Date of admission: 09/28/22 03:35 Primary care physician: Choco Álvarez MD Attending physician on admission: Aj Luis Consults: 09/28/22 07:29 Consult to Gastroenterology Routine Consulting Provider: Poppy Robledo Reason for consultation: elevated LFTs, dilated biliary ducts, ?choledocolithiasis Has provider been notified: No DS: Diagnosis Discharge Diagnosis (1) Choledocholithiasis: Status: Resolved (2) Recurrent biliary colic: Status: Resolved DS: Summary Hospital Course Hospital Course: HPI AT ADMISSION: Lucy Villa is a 22 year old female with history of biliary colic who presents here with a recurrent episode.? She patient is approximately 6 months .? She has had several bouts of right upper quadrant pain radiating around to her back with associated fatty food intolerance.? She otherwise has regular bowel habits.? She is unsure she has never been jaundiced before but she has noticed her urine has been dark for several months time. Past surgical history most noteworthy for section April. Medications include control pill chart was reviewed patient evaluated only.? Chart was reviewed and patient evaluated.? Sonogram demonstrates cholelithiasis and dilation of common bile duct.? Bilirubin 1.7. HOSPITAL COURSE: She was admitted to the surgical service for further treatment of the biliary colic, further evaluation of her elevated LFTs. Patient has recurrent biliary colic and a question of choledocholithiasis. GI consult was requested who recommended MRCP. However this was unable to be performed that day. Given her persistent RUQ pain, it was recommended to proceed with laparoscopic cholecystectomy possible open with cholangiogram that day. She agreed to proceed. On 09/28/22, a laparoscopic cholecystectomy was performed by Dr. Luis without complication. The patient tolerated the procedure well. On 09/29/22 an ERCP with sphincterotomy and biopsy was performed by Dr. Stern without complication. She had an uncomplicated recovery course from both procedures. She was feeling well with adequate pain control. She was tolerating a solid diet. She was ambulating. She felt ready for discharge. She was discharged to home on 09/29/22 in stable condition. She is to follow up in the office in 1 week. Status at Discharge Functional status at discharge: independent ambulation Overall status at discharge: patient is progressing back to baseline Time Spent with Patient Time attestation: Total time managing care of this patient today ____ minutes. Discharge coordination time: Less than 30 minutes Quality: Safe Use of Opioids Does Pt have an Active Cancer Diagnosis on the Problem List?: No Quality: Stroke Does the patient have a stroke diagnosis?: No Physical Exam Vital Signs: Vital Signs: Last Vital Signs Temp 98.6 F 09/29/22 16:00 Pulse 69 09/29/22 16:00 Resp 16 09/29/22 16:00 BP 116/72 09/29/22 16:00 Pulse Ox 97 09/29/22 16:00 O2 Del Method Room Air 09/29/22 16:00 O2 Flow Rate 2 09/29/22 15:23 BMI result Body Mass Index 29.3 Const: General: comfortable, no acute distress and alert Orientation/consciousness: patient oriented x3 Resp: Effort & Inspection: normal respiratory effort GI: Inspection: No distended and Yes incision (dressings c/d/i) Palpation (GI): Soft to palpation, no guarding and not rigid Skin: General skin exam: no rashes or lesions noted and no jaundice Neuro: General: patient oriented x3 and moves all extremities DS: Data Data Completed and Pending Completed studies during hospitalization [Text1]: Pending at discharge 09/28/22 14:20 Surgical [PTH] Routine Gallbladder, cholecystectomy:? -Chronic cholecystitis with cholesterolosis and focal intestinal metaplasia.? -Cholelithiasis. 09/29/22 14:57 Surgical [PTH] Routine Gastric polyp, biopsy:? Fundic gland polyp with focal minimal chronic inactive inflammation; negative for H pylori, intestinal metaplasia and dysplasia. Procedures Excision of Stomach, Via Natural or Artificial Opening Endoscopic, Diagnostic (09/28/22) Extirpation of Matter from Common Bile Duct, Via Natural or Artificial Opening Endoscopic (09/28/22) Fluoroscopy of Biliary and Pancreatic Ducts using Low Osmolar Contrast (09/28/22) Fluoroscopy of Gallbladder and Bile Ducts using Low Osmolar Contrast (09/28/22) Resection of Gallbladder, Percutaneous Endoscopic Approach (09/28/22) Discharge Plan Discharge Anticipated Discharge Date/Time: 09/30/22 12:08 Patient Disposition: Home, Self-Care Discharge Diagnosis: recurrent biliary colic, choledocolithiasis Referrals: Aj Luis MD [Physician] - 1 Week Physician,Unknown J [Physician] - 1 Week Discharge Medications: New oxycodone-acetaminophen [Percocet] 5-325 mg tablet 1 tab PO Q4H PRN (Reason: pain (scale score 7-10)) Qty: 24 0RF Rx Instructions: Partial Fill upon patient request. Continued levonorgestrel-ethinyl estrad [Vienva] 0.1-20 mg-mcg tablet 1 tab PO DAILY@2230 Discharge Orders: Discharge Order (Routine); Ordered 09/29/22 Ordered By: Aj Luis Diet: Low fat, low cholesterol Activity on Discharge: No heavy lifting Stand Alone Forms: Patient Portal Discharge page Activity Restrictions/Additional Instructions: Apply an ice pack for short intervals (20 minutes on, followed by at least 20 minutes off) for the first 2 days. Do not apply heat. Do not use creams, lotions, or topical antibiotics. These can cause infection or allergic reaction. Ok to shower 48 hours after your surgery. You have steri strips (small white cloth strips) covering your incision- these will fall off ~1 week. Follow up in office with Dr. Luis in 1 week. ([phone]) No heavy lifting (>10lbs) or strenuous activity! Call Your Doctor If: -Your temperature exceeds 101.5? F -You experience excessive pain or swelling -You have an unexpected reaction to medication -You have excessive bleeding -You experience continued vomiting/nausea -Your incision begins to separate -Your incision shows signs of infection such as increased redness, swelling, excessive pain, drainage (light blood or clear fluid is normal) or heat Care Plan Goals: Return to baseline health and resume normal activities following recovery period. Health Concerns: biliary colic CBD stone Plan of Treatment: s/p lap cholecystectomy s/p ERCP f/u in office in 1 week Assessment: Doing well post op. Discharge Date/Time: 09/29/22 17:47
== END 2022-09-29 17:47 | disposition home or self-care (01) | DRG 263 ==
LOC: HO.ED 09-28 03:16 → HO.EDOVER 09-28 03:48 → HO.S3 09-28 15:06
PROVIDERS: Internal Medicine Gastroenterology; Physician Assistant Surgical; Surgery; Admitting Provider Surgery; Emergency Provider Emergency Medicine; PCP Internal Medicine; Visit Provider Surgery
PROC: 0FT44ZZ Resection of Gallbladder, Percutaneous Endoscopic Approach (ICD-10-PCS; CPT 47562; principal; 2022-09-28 15:00)
PROC: 0FC98ZZ Extirpation of Matter from Common Bile Duct, Via Natural or Artificial Opening Endoscopic (ICD-10-PCS; CPT 43260; principal; 2022-09-29 12:50)
DX: K80.50 Calculus of bile duct without cholangitis or cholecystitis without obstruction (principal); K31.7 Polyp of stomach and duodenum
CPT/HCPCS: 36415; 76705; 80053; 80076; 81001; 81003; 81025; 82248; 83690; 85025; 87086; 88304; 88305; 88342; 99285; C1726; C1769; J0690; J1100; J1170; J1610; J1885; J1956; J2250; J2270; J2405; J2795; J3010; Q9967

== ENCOUNTER → 2022-09-28 03:35 | Outpatient (BNV) | payer OTHER, SELFPAY | PROVIDERS: Admitting Provider Surgery; Emergency Provider Emergency Medicine; Visit Provider Surgery | DX: K80.50 Calculus of bile duct without cholangitis or cholecystitis without obstruction (principal) | CPT/HCPCS: 47563; 99024; 99222; 99223; 99238 ==

== ENCOUNTER → 2022-09-28 03:35 | Outpatient (BNV) | payer OTHER, SELFPAY | PROVIDERS: Admitting Provider Surgery; Emergency Provider Emergency Medicine; Visit Provider Internal Medicine | DX: R79.89 Other specified abnormal findings of blood chemistry (principal); K80.50 Calculus of bile duct without cholangitis or cholecystitis without obstruction; K83.8 Other specified diseases of biliary tract | CPT/HCPCS: 99222 ==

== ENCOUNTER 2022-10-06 09:50 | Outpatient (AMB) | payer OTHER, SELFPAY ==
[2022-10-06 09:54] VITALS: BP 115/72; RESP 66
--- NOTE | 2022-10-06 09:54 | MHC.OFFVIS ---
Intake Vital Signs 10/06/22 09:54 Weight 147 lb BP 115/72 Blood Pressure Location Rt brachial Position Sitting Respiration 66 H Intake Visit Reasons: ERCP with sphincterotomy and biopsy Intake Note: Patient here s/o ERCP with sphincterotomy and biopsy. Patient reports minor oozing noted on incision after steri strips fell off. C/o on and off pain. Takes rx pain meds as needed. Calender Inspector Required: No Accompanied by: Self / Same As Patient Allergies No Known Allergies Allergy (Verified 10/06/22 09:56) HPI HPI Comments History of Present Illness Details Patient presents for follow-up. She is having moderate incisional discomfort. She is tolerating a diet. She is has some constipation issues. Patient is slowly but steadily increasing her activity level. [facility] Surgical History History of Hx laparoscopic cholecystectomy Social History Household Members: Family Housing: House Do you presently have visiting nurse or other home services: No Patient Tobacco Use Status: Never used Tobacco e-Cigarette/Vaping Use: Never Used service: No Physical Exam Vital Signs: Last Vital Signs Resp 66 H 10/06/22 09:54 BP 115/72 10/06/22 09:54 Eyes Other: Anicteric GI Other: Abdomen soft. All wounds clean dry and intact. Assessment & Plan Assessment & Plan (1) Choledocholithiasis: Code(s): K80.50 - Calculus of bile duct without cholangitis or cholecystitis without obstruction (2) Recurrent biliary colic: Code(s): K80.50 - Calculus of bile duct without cholangitis or cholecystitis without obstruction Plan Patient is doing well. I have made suggestions regarding her constipation issues. She is encouraged to walk. Diet as tolerated. Will provider her a return to work note for 3 weeks time and if possible 2 weeks light duty when she commences. Coding Level of Care Code Global (03405) Diagnoses Choledocholithiasis K80.50 Recurrent biliary colic K80.50
== END 2022-10-06 10:05 | disposition home or self-care (01) ==
PROVIDERS: Visit Provider Surgery
DX: K80.50 Calculus of bile duct without cholangitis or cholecystitis without obstruction (principal)
CPT/HCPCS: 99024

== ENCOUNTER → 2022-10-06 09:50 | Outpatient (BNVA) | payer OTHER, SELFPAY | PROVIDERS: Visit Provider Surgery ==